=== PATIENT | male | born 1940 | race African-American/Black ===

== ENCOUNTER 2016-09-20 14:24 | Inpatient (IN) ==
[2016-09-20] MEDS ORDERED: 0.9 % Sodium Chloride 1,000 ML IVC ONE (14:37)
[2016-09-20] MEDS ORDERED: Ondansetron 4 MG/2 ML VIAL IVP ONE (14:37)
[2016-09-20 14:55] LABS: Basophils % 0.2 %; Eosinophils # 0.1 K/mcL (0.0-0.6); Eosinophils % 1.1 %; Hematocrit 32.3 % (37.5-50.1); Hemoglobin 10.2 g/dL (12.9-16.9); Immature Granulocytes % 0.4 % (0-4); Lymphocytes # 1.1 K/mcL (0.6-4.6); Lymphocytes % 13.1 %; Mean Corpuscular HGB Conc 31.6 g/dL (31.6-35.5); Mean Corpuscular Hemoglobin 27.8 pg (28.0-33.3); Mean Platelet Volume 10.4 fL (9.4-12.4); Monocytes # 0.5 K/mcL (0.0-1.3); Monocytes % 6.4 %; Neutrophils # 6.7 K/mcL (1.6-8.9); Platelet Count 157 K/mcL (140-400); Red Blood Count 3.67 M/mcL (4.19-5.50); Segmented Neutrophils % 78.8 %
[2016-09-20 15:01] LABS: INR 1.5; Prothrombin Time 15.9 Seconds (9.4-12.1)
[2016-09-20 15:05] LABS: Calcium 8.7 mg/dL (8.6-10.8); Potassium 4.1 mEq/L (3.5-4.5)
--- NOTE | 2016-09-20 15:14 | Emergency Department Note ---
Disposition Clinical Impression: GI bleed Qualifiers: GI bleed type/associated pathology: melena Qualified Code(s): K92.1 - Melena Disposition: Admitted As Inpatient Condition: Critical GI Bleed HPI - General Chief complaint: ED GI Bleed Stated complaint: tarry stool weakness Time Seen by Provider: 09/20/16 14:31 Source: patient Limitations: no limitations Nursing Notes Reviewed: Yes Vital Signs Reviewed: Yes - History of Present Illness HPI Narrative: Mr. Michaels, a 76yo male, presents from home by EMS with chief complaint of generalized weakness, nausea, coal black stools. Generalized weakness onset last night. Nausea with black stools onset this morning. Consistency described as loose or tarry. Patient notes intermittant cramping abdominal pain onset Tuesday, worse with PO intake. He has had reduced PO intake because of this. Patient diagnosed with A. Fib 1.5-2 weeks ago. Anticoagulated on aspirin and xaralto. PMH: Hypertension, CAD, secondary hyperparathyroidism, A. fib. PSH: Guzman aneurysm 2002, gastric aneurysm 2009, aortic aneurysm with dissection 2013. Admits: Generalized weakness now resolved, black tarry stools. Denies: Fever, chills, current weakness, dizziness, lightheadedness, chest pains , palpitations. PCP: Dr. Mayo Stock Chaser: Dr. Medina, [facility] Buyer Assistant: Dr. Otoole - Related Data Home Medications Medication Instructions Recorded Confirmed Aspirin 81 mg PO DAILY 09/20/16 09/20/16 Atorvastatin [Lipitor] 40 mg PO HS 09/20/16 09/20/16 Calcitriol [Calcitriol] 0.25 mcg PO DAILY 09/20/16 09/20/16 Carvedilol [Coreg] 25 mg PO BID 09/20/16 09/20/16 Furosemide [Lasix] 40 mg PO DAILY 09/20/16 09/20/16 Hydralazine HCl 50 mg PO BID 09/20/16 09/20/16 Losartan Potassium [Cozaar] 50 mg PO DAILY 09/20/16 09/20/16 Potassium Chloride [Klor-Con M20] 20 meq PO DAILY 09/20/16 09/20/16 Primidone [Mysoline] 50 mg PO HS 09/20/16 09/20/16 Rivaroxaban [Xarelto] 15 mg PO DAILY 09/20/16 09/20/16 Tamsulosin [Flomax] 0.4 mg PO DAILY 09/20/16 09/20/16 Allergies Allergy/AdvReac Type Severity Reaction Status Date / Time lisinopril AdvReac Swelling Verified 09/20/16 16:14 of Lip/Tongue/Throat Past Medical History - Past Medical History Medical history: Reports: aortic aneurysm, CHF, hypertension, renal disease, thyroid disease Psychiatric history: Reports: no psych history - Social History Smoking Status: Never smoker Smokeless Tobacco Status: No Alcohol use: Reports: none Drug use: Reports: none Physical Exam General: Patient is alert, oriented, and in no acute distress. HEENT: No facial asymmetry. Head is normocephalic and atraumatic. Oral mucosa moist. Trachea midline. Cardiovascular: Heart regular rate and rhythm without clicks, rubs, gallops, or murmurs. No JVD. PMI nondisplaced. Respiratory: Symmetric chest rise with good respiratory effort. Bilateral breath sounds are clear without wheezing, crackles, or rhonchi. Abdomen: Bowel sounds present normoactive x-4 quadrants. Abdomen is soft, nondistended. Nontender. No organomegaly noted. Rectal: Good rectal tone, no lesions or hemorrhoids palpated. Stool tarry and black on the gloved finger. FOBT submitted. Neuro: Cranial nerves II through XII grossly intact. Psych: Patient's affect is appropriate for situation. - General Limitations: no limitations General appearance: alert, in no apparent distress Course Course Narrative: Concerns for upper GI bleed. Also concern for potential aorto enteric fistula given his history of aortic dissection with repair. Given his history of kidney disease, will CT chest, abdomen, pelvis without contrast Disposition pending additional workup. Lab work does show mild anemia with hemoglobin of 10.2 versus previous value above 13. Patient is asymptomatic at this time. Creatinine 1.84. FOBT positive. Spoke with patient and his regarding findings thus far. Patient is agreeable to staying with edema should there be no aortic findings on CTA. If there are he would prefer to be transferred to [facility]. CTA pending. Chest x-ray interpreted as no acute process. CTA chest, abdomen, and pelvis without contrast interpreted as no acute findings. Chest X-Ray 09/20/16 14:37 IMPRESSION: No acute process. D/ / Chong Alicia MD / Chong Alicia MD Interpreting Provider: Chong Alicia MD Abdomen/Pelvis CT 09/20/16 15:12 IMPRESSION: No evidence of dissecting aneurysm of the aorta, similar in caliber to the prior study. This finding is not well evaluated on this noncontrast study. Radiodense material within the duodenum. There is edema within the mesenteric fat of the upper abdomen adjacent to the distal stomach and duodenum. Correlation for inflammation is recommended. Sigmoid colonic diverticulosis without radiographic evidence of active inflammation. D/ / Rach Khan Cha, MD / Rach Khan Cha, MD Interpreting Provider: Rach Khan Cha, MD Chest CT 09/20/16 15:12 IMPRESSION: Stable noncontrast CT findings of the chest. Postsurgical changes of aortic repair. There is evidence of dissection of the descending thoracic aorta, also seen on the prior study. D/ / Rach Khan Cha, MD / Rach Khan Cha, MD Interpreting Provider: Rach Khan Cha, MD 17:[address] Segura. He accepts the patient. No further questions or concerns at this time. Vital Signs Temperature 97.7 F 09/20/16 14:25 Pulse Rate 70 09/20/16 14:25 Respiratory Rate 20 09/20/16 14:25 Blood Pressure 126/63 09/20/16 14:25 O2 Sat by Pulse Oximetry 98 09/20/16 14:25 Temperature 97.7 F 09/20/16 14:25 Pulse Rate 69 09/20/16 17:26 Respiratory Rate 13 09/20/16 18:11 Blood Pressure 138/72 09/20/16 18:11 O2 Sat by Pulse Oximetry 98 09/20/16 17:26 Oxygen Delivery Oxygen Delivery Room Air GI Bleed - Medical Records Medical records reviewed: Yes I reviewed the patient's medical records. - Lab Data Lab results reviewed: Yes I reviewed the patient's lab results. Result diagrams: 09/20/16 18:26 09/20/16 14:41 Lab Results 09/20/16 09/20/16 09/20/16 Range/Units 14:41 14:41 14:41 WBC 8.5 (4.3-11.1) K/mcL RBC 3.67 L (4.19-5.50) M/mcL Hgb 10.2 L (12.9-16.9) g/dL Hct 32.3 L (37.5-50.1) % MCV 88.0 (83.0-100.0) fL MCH 27.8 L (28.0-33.3) pg MCHC 31.6 (31.6-35.5) g/dL RDW 14.0 (11.5-14.5) % Plt Count 157 (140-400) K/mcL MPV 10.4 (9.4-12.4) fL Immature Gran % 0.4 (0-4) % Seg Neutrophils % 78.8 % Lymphocytes % 13.1 % Monocytes % 6.4 % Eosinophils % 1.1 % Basophils % 0.2 % Neutrophils # 6.7 (1.6-8.9) K/mcL Lymphocytes # 1.1 (0.6-4.6) K/mcL Monocytes # 0.5 (0.0-1.3) K/mcL Eosinophils # 0.1 (0.0-0.6) K/mcL Basophils # 0.0 (0.0-0.2) K/mcL PT 15.9 H (9.4-12.1) Seconds INR 1.5 APTT 31.0 (26.0-36.0) Seconds Sodium (136-145) mEq/L Potassium (3.5-4.5) mEq/L Chloride (98-109) mEq/L Carbon Dioxide (19-29) mEq/L BUN (8-26) mg/dL Creatinine (0.72-1.25) mg/dL Est GFR ( Amer) (> 60) Est GFR (Non-Af Amer) (> 60) BUN/Creatinine Ratio (6-26) Glucose (70-99) mg/dL Calculated Osmolality (280-300) Calcium (8.6-10.8) mg/dL Troponin I (0-0.03) ng/mL Lipase 18 (8-78) Units/L Stool Occult Blood (Negative) Blood Type Antibody Screen 09/20/16 09/20/16 09/20/16 Range/Units 14:41 14:41 14:50 WBC (4.3-11.1) K/mcL RBC (4.19-5.50) M/mcL Hgb (12.9-16.9) g/dL Hct (37.5-50.1) % MCV (83.0-100.0) fL MCH (28.0-33.3) pg MCHC (31.6-35.5) g/dL RDW (11.5-14.5) % Plt Count (140-400) K/mcL MPV (9.4-12.4) fL Immature Gran % (0-4) % Seg Neutrophils % % Lymphocytes % % Monocytes % % Eosinophils % % Basophils % % Neutrophils # (1.6-8.9) K/mcL Lymphocytes # (0.6-4.6) K/mcL Monocytes # (0.0-1.3) K/mcL Eosinophils # (0.0-0.6) K/mcL Basophils # (0.0-0.2) K/mcL PT (9.4-12.1) Seconds INR APTT (26.0-36.0) Seconds Sodium 140 (136-145) mEq/L Potassium 4.1 (3.5-4.5) mEq/L Chloride 110 H (98-109) mEq/L Carbon Dioxide 20 (19-29) mEq/L BUN 93 H (8-26) mg/dL Creatinine 1.84 H (0.72-1.25) mg/dL Est GFR ( Amer) 44 L (> 60) Est GFR (Non-Af Amer) 36 L (> 60) BUN/Creatinine Ratio 51 H (6-26) Glucose 114 H (70-99) mg/dL Calculated Osmolality 320 H (280-300) Calcium 8.7 (8.6-10.8) mg/dL Troponin I (0-0.03) ng/mL Lipase (8-78) Units/L Stool Occult Blood Positive A (Negative) Blood Type A POSITIVE Antibody Screen NEGATIVE 09/20/16 09/20/16 Range/Units 18:26 18:26 WBC (4.3-11.1) K/mcL RBC (4.19-5.50) M/mcL Hgb 9.6 L (12.9-16.9) g/dL Hct 30.3 L (37.5-50.1) % MCV (83.0-100.0) fL MCH (28.0-33.3) pg MCHC (31.6-35.5) g/dL RDW (11.5-14.5) % Plt Count (140-400) K/mcL MPV (9.4-12.4) fL Immature Gran % (0-4) % Seg Neutrophils % % Lymphocytes % % Monocytes % % Eosinophils % % Basophils % % Neutrophils # (1.6-8.9) K/mcL Lymphocytes # (0.6-4.6) K/mcL Monocytes # (0.0-1.3) K/mcL Eosinophils # (0.0-0.6) K/mcL Basophils # (0.0-0.2) K/mcL PT (9.4-12.1) Seconds INR APTT (26.0-36.0) Seconds Sodium (136-145) mEq/L Potassium (3.5-4.5) mEq/L Chloride (98-109) mEq/L Carbon Dioxide (19-29) mEq/L BUN (8-26) mg/dL Creatinine (0.72-1.25) mg/dL Est GFR ( Amer) (> 60) Est GFR (Non-Af Amer) (> 60) BUN/Creatinine Ratio (6-26) Glucose (70-99) mg/dL Calculated Osmolality (280-300) Calcium (8.6-10.8) mg/dL Troponin I 0.01 (0-0.03) ng/mL Lipase (8-78) Units/L Stool Occult Blood (Negative) Blood Type Antibody Screen - Radiology Data Radiology results reviewed: Yes I reviewed the patient's radiology results. Chest X-Ray 09/20/16 14:37 IMPRESSION: No acute process. D/ / Chong Alicia MD / Chong Alicia MD Interpreting Provider: Chong Alicia MD Abdomen/Pelvis CT 09/20/16 15:12 IMPRESSION: No evidence of dissecting aneurysm of the aorta, similar in caliber to the prior study. This finding is not well evaluated on this noncontrast study. Radiodense material within the duodenum. There is edema within the mesenteric fat of the upper abdomen adjacent to the distal stomach and duodenum. Correlation for inflammation is recommended. Sigmoid colonic diverticulosis without radiographic evidence of active inflammation. D/ / Rach Khan Cha, MD / Rach Khan Cha, MD Interpreting Provider: Rach Khan Cha, MD Chest CT 09/20/16 15:12 IMPRESSION: Stable noncontrast CT findings of the chest. Postsurgical changes of aortic repair. There is evidence of dissection of the descending thoracic aorta, also seen on the prior study. D/ / Rach Khan Cha, MD / Rach Khan Cha, MD Interpreting Provider: Rach Khan Cha, MD - EKG Data EKG attestation: Yes I reviewed and interpreted this EKG. EKG results narrative: EKG dated September 16 100sinus rhythm with rate of 70. MO prolonged indicating first-degree AV block. Intervals otherwise normal. Left axis. LVH criteria met. Nonspecific ST-T changes. Compared to previous dated 04/20 2012 show no acute ischemic changes in comparison; first-degree AV block present on comparison EKG. Critical Care Time Critical Care Time: Yes Total Critical Care Time: 30 Attestation: Critical care performed: Time is exclusive of separately billable procedures. Time includes: direct patient care, patient reassessment, coordination of patient care, interpretation of data (laboratory data, radiology data, and respiratory data), review of patient's medical records, medical consultation and documentation of patient care. Procedures included in critical care time: Procedures excluded from critical care time:
[2016-09-20] MEDS ORDERED: Pantoprazole 40 MG VIAL IVP ONE (15:19)
--- NOTE | 2016-09-20 15:21 | Emergency Department Note ---
START Narrative - START START: I examined this patient and my medical decision-making was reviewed with the CERTIFIED [employer] OPERATOR/PA/Advanced Practice Nurse/Resident Physician. I agree with the documented findings, disposition and treatment plan as described except to the extent set forth below. Patient presents to the emergency department with a chief complaint of weakness. Patient states he has not felt well since Tuesday. Today he started passing dark black stools. Concern that he is bleeding internally. Patient resides started on Xarelto for new onset A. fib. On exam is awake and alert in no distress. Abdomen soft with some mild epigastric tenderness. Lungs clear. Rectal exam showed black stool per Dr. Stern. In. A call blood sent. GI bleed workup. Likely admission. Patient's hemoglobin is dropped from 13 to 10 in a week.
[2016-09-20] MEDS: Pantoprazole 40 MG in 0.9 % Sodium Chloride Mini Bag 100 ML IVC SCH ×2 (15:29→20:19)
--- NOTE | 2016-09-20 17:54 | Internal Med History&Physical ---
Date of Encounter: 09/20/16 Time of Encounter: 17:50 Assessment and Plan (1) GI bleeding Current visit: Yes Status: Acute Patient with GI bleeding likely secondary to the use of anticoagulation. Decreased hemoglobin compared to baseline noted. Today hemoglobin 10.2, baseline 13.7. Stool tested positive for blood. We will keep the patient nothing by mouth for now. Monitor hemoglobin every 6 hours. Platelet count within normal limits. Kidney function test consistent with his baseline. We will continue with IV Protonix. There is no history of liver cirrhosis. DVT prophylaxis will be provided with EPCDs, we will avoid the use of heparin. Stop anticoagulation. Avoid aspirin. Avoid nephrotoxic agents in light of history of chronic kidney disease. Telemetry monitoring. Will obtain cardiac biomarkers. A consultation with supervisor lime will be requested. The plan of care was discussed in detail with the patient and his , they both expressed understanding. Qualifiers: GI bleed type/associated pathology: unspecified gastrointestinal hemorrhage type Qualified Code(s): K92.2 - Gastrointestinal hemorrhage, unspecified (2) DVT prophylaxis Current visit: Yes Status: Acute (3) Aneurysm Current visit: Yes Status: Acute Internal Medicine - H&P: HPI Chief complaint: Dark Stools, weakness Admitted From: Emergency Dept Plans for Post Hospital Care: Home History of present illness: Mr. Michaels is a 76 year old male with medical history of hypertension, atrial fibrillation diagnosed 10 days ago, he was started 10 days ago on Xarelto, multiple aneurysms, chronic kidney disease (follows up with Dr. Otoole). He presented to our emergency department complaining of progressive weakness which started 3 days ago. Initially, the patient thought that he had some viral infection. Additionally, the patient noticed some dark colored stool. As stated above, the patient was started recently on anticoagulation with Xarelto in light of a recent diagnosis of atrial fibrillation. He presented to the emergency department and initial workup revealed a hemoglobin of 10.2, stool tested positive for blood. His hemoglobin a few days ago was 13. The patient was admitted for further management and workup. In light of history of multiple aneurysms he underwent CT of the chest and abdomen which did not reveal any changes in his prior aneurysms. Due to history of CKD, the chest and abdomen CT was obtained without IV contrast. During my encounter with the patient was alert, awake, oriented, not in distress, his was present during my encounter with him. Past Med Surg Social Fam HX - Past Medical History Medical history: aortic aneurysm, CHF, hypertension, renal disease, thyroid disease Psychiatric history: no psych history - Social History Smoking Status: Never smoker Smokeless Tobacco Status: No Alcohol use: none Drug use: none Internal Medicine - H&P: Meds Aspirin 81 mg PO DAILY 09/20/16 [History] Atorvastatin [Lipitor] 40 mg PO HS 09/20/16 [History] Calcitriol [Calcitriol] 0.25 mcg PO DAILY 09/20/16 [History] Carvedilol [Coreg] 25 mg PO BID 09/20/16 [History] Furosemide [Lasix] 40 mg PO DAILY 09/20/16 [History] Hydralazine HCl 50 mg PO BID 09/20/16 [History] Losartan Potassium [Cozaar] 50 mg PO DAILY 09/20/16 [History] Potassium Chloride [Klor-Con M20] 20 meq PO DAILY 09/20/16 [History] Primidone [Mysoline] 50 mg PO HS 09/20/16 [History] Rivaroxaban [Xarelto] 15 mg PO DAILY 09/20/16 [History] Tamsulosin [Flomax] 0.4 mg PO DAILY 09/20/16 [History] Allergies lisinopril Adverse Reaction (Verified 09/20/16 16:14) Swelling of Lip/Tongue/Throat All Systems PM: A 10-system review of systems was performed and is negative for pertinent findings except as documented above in the HPI. - Constitutional Constitutional: as per HPI, no chills, no fever(s), no night sweats - EENT Eyes: as per HPI, no change in vision, no discharge, no pain, no photophobia Ears: as per HPI, no ear discharge, no ear pain, no tinnitus Nose, mouth and throat: as per HPI, no dysphagia, no nasal discharge, no neck pain, no sore throat - Breasts Breasts: as per HPI - Cardiovascular Cardiovascular ROS IM: as per HPI, no chest pain, no diaphoresis, no dyspnea, no lightheadedness, no palpitations, no syncope - Respiratory Respiratory: as per HPI, no cough, no dyspnea, no wheezing, no excessive phlegm production - Gastrointestinal Gastrointestinal: as per HPI, no abdominal pain, no diarrhea, no hematemesis, no hematochezia, no melena, no nausea, no vomiting - Genitourinary Genitourinary ROS male: as per HPI - Musculoskeletal Musculoskeletal ROS IM: as per HPI, no numbness, no tingling - Integumentary Integumentary IM: as per HPI, no rash, no unusual bruising - Neurological Neurological ROS: as per HPI, no confusion, no convulsions, no focal weakness, no numbness, no tingling, no tremor(s) - Psychiatric Psychiatric: as per HPI - Endocrine Endocrine IM: as per HPI - Hematologic/Lymphatic Hematologic/Lymphatic: as per HPI, no easy bruising - Allergic/Immunologic Allergic/Immunologic: as per HPI - Constitutional Vitals: Temp Pulse Resp BP Pulse Ox 97.7 F 69 19 145/76 98 09/20/16 14:25 09/20/16 17:26 09/20/16 17:26 09/20/16 17:26 09/20/16 17:26 General appearance: Present: cooperative, A&O X 3, pleasant, no acute distress - Head Head exam: Present: atraumatic, normocephalic - Eye Eye exam: Present: PERRL, conjuntiva pink, sclera anicteric Pupils: Present: PERRL - Neck Neck exam general surgery: Present: supple, trachea midline. Absent: lymphadenopathy - Respiratory Respiratory exam: Present: CTAB. Absent: accessory muscle use, rales, rhonchi, wheezes - Cardiovascular Cardiovascular exam: Present: RRR, +S1, +S2. Absent: diastolic murmur, gallop, rubs, systolic murmur - GI/Abdominal GI/Abdominal exam: Present: normal bowel sounds, soft, no peritoneal signs. Absent: distended, tenderness - Extremities Exam Extremities exam: Present: warm, radial pulses palpable and symetrical. Absent : calf tenderness, cyanotic, pedal edema - Neurological Exam Neurological exam: Present: CN II-XII intact, oriented X3, no focal deficits. Absent: pronater drift, facial droop, speech deficit - Skin Skin exam: Present: dry, intact Internal Med - H&P Results - Labs CBC & Chem 7: 09/20/16 14:41 09/20/16 14:41 Labs: Short CBC 09/20/16 Range/Units 14:41 WBC 8.5 (4.3-11.1) K/mcL Hgb 10.2 L (12.9-16.9) g/dL Hct 32.3 L (37.5-50.1) % Plt Count 157 (140-400) K/mcL Neutrophils # 6.7 (1.6-8.9) K/mcL BMP 09/20/16 14:41 Sodium 140 Potassium 4.1 Chloride 110 H Carbon Dioxide 20 BUN 93 H Creatinine 1.84 H Glucose 114 H Calcium 8.7 - Impressions ITS Impressions Chest X-Ray 09/20/16 14:37 IMPRESSION: No acute process. D/ / Chong Alicia MD / Chong Alciia MD Interpreting Provider: Chong Alicia MD Abdomen/Pelvis CT 09/20/16 15:12 IMPRESSION: No evidence of dissecting aneurysm of the aorta, similar in caliber to the prior study. This finding is not well evaluated on this noncontrast study. Radiodense material within the duodenum. There is edema within the mesenteric fat of the upper abdomen adjacent to the distal stomach and duodenum. Correlation for inflammation is recommended. Sigmoid colonic diverticulosis without radiographic evidence of active inflammation. D/ / Rach Khan Cha, MD / Rach Khan Cha, MD Interpreting Provider: Rach Khan Cha, MD Chest CT 09/20/16 15:12 IMPRESSION: Stable noncontrast CT findings of the chest. Postsurgical changes of aortic repair. There is evidence of dissection of the descending thoracic aorta, also seen on the prior study. D/ / Rach Khan Cha, MD / Rach Khan Cha, MD Interpreting Provider: Rach Khan Cha, MD
[2016-09-20] MEDS ORDERED: D5% in 0.45% NACL 1,000 ML IVC SCH (18:00)
[2016-09-20] MEDS ORDERED: Naloxone 0.4 MG/ML INJ IVP PRN (18:00)
[2016-09-20] MEDS ORDERED: Ondansetron 4 MG/2 ML VIAL IVP PRN (18:00)
[2016-09-20] MEDS ORDERED: *HR* Morphine 2 MG/ML SYRINGE IVP PRN (18:00)
[2016-09-20 18:41] LABS: Hematocrit 30.3 % (37.5-50.1); Hemoglobin 9.6 g/dL (12.9-16.9)
[2016-09-21 00:54] LABS: Basophils % 0.4 %; Eosinophils # 0.2 K/mcL (0.0-0.6); Eosinophils % 2.1 %; Hematocrit 25.7 % (37.5-50.1); Hematocrit 26.5 % (37.5-50.1); Hemoglobin 8.1 g/dL (12.9-16.9); Hemoglobin 8.3 g/dL (12.9-16.9); Immature Granulocytes % 0.4 % (0-4); Lymphocytes # 1.3 K/mcL (0.6-4.6); Lymphocytes % 16.3 %; Mean Corpuscular HGB Conc 31.5 g/dL (31.6-35.5); Mean Corpuscular Hemoglobin 27.6 pg (28.0-33.3); Mean Corpuscular Volume 87.4 fL (83.0-100.0); Monocytes # 0.7 K/mcL (0.0-1.3); Monocytes % 9.3 %; Neutrophils # 5.6 K/mcL (1.6-8.9); Platelet Count 125 K/mcL (140-400); Red Blood Count 2.94 M/mcL (4.19-5.50); Red Cell Distribution Width 14.1 % (11.5-14.5); Segmented Neutrophils % 71.5 %
[2016-09-21 01:00] LABS: INR 1.4; Prothrombin Time 15.5 Seconds (9.4-12.1)
[2016-09-21 01:13] LABS: Albumin 2.9 g/dL (3.5-5.0); Albumin/Globulin Ratio 1.3 (1.1-2.2); Bilirubin,Direct 0.3 mg/dL (0.0-0.5); Bilirubin,Indirect 0.4 mg/dL (0.0-1.2); Bilirubin,Total 0.7 mg/dL (0.2-1.2); Calcium 8.4 mg/dL (8.6-10.8); Globulin 2.2 g/dL (2.4-3.5); Potassium 3.7 mEq/L (3.5-4.5); Total Protein 5.1 g/dL (6.0-8.3)
[2016-09-21] MEDS ORDERED: 0.9 % Sodium Chloride 1,000 ML ONE (01:47)
[2016-09-21] MEDS: Pantoprazole 40 MG in 0.9 % Sodium Chloride Mini Bag 100 ML IVC SCH ×4 (01:48→20:34)
[2016-09-21] MEDS: 0.9 % Sodium Chloride 1,000 ML IVC SCH (01:53)
[2016-09-21 06:48] LABS: Hematocrit 23.8 % (37.5-50.1); Hemoglobin 7.7 g/dL (12.9-16.9)
--- NOTE | 2016-09-21 10:26 | Gastroenterology Consult Note ---
<Danish Rosario - Last Filed: 09/21/16 11:07> Date of Encounter: 09/21/16 Time of Encounter: 09:55 - Assessment and plan (1) Melena Current Visit: Yes Status: Acute Assessment and plan: Complete EGD today to r/o esophagitis, gastritis, duodenitis, PUD, MW tear, or AVM. Keep NPO. (2) Anemia Current Visit: Yes Status: Acute Assessment and plan: Secondary to melena. Continue to monitor CBC and transfuse PRBC as needed. Hgb 7.7 this AM, 2 units PRBC ordered by primary team. Qualifiers: Anemia type: unspecified type Qualified Code(s): D64.9 - Anemia, unspecified (3) History of aortic aneurysm Current Visit: Yes Status: Acute - Time Spent With Patient Total time spent is greater than 50% in coordination of care (as documented) at patient's floor/unit and/or counseling patient: GI History of Present Illness - Data of Consult Patient: new to practice Consult date: 09/21/16 Requesting Physician: Mingo Forbes MD - Consult Narrative Reason for consult: GI bleed on Xarelto History of present illness: Mr. Michaels is a 76 year old male with PMHx of aortic aneurysm, CHF, HTN CKD, Afib (started on Xarelto 10 days ago). He presented to the ED with progressive weakness, which started 3 days prior to admission. He reported dark colored stool. Hgb on admission was 10.2 and Hgb this AM 7.7. his baseline Hgb 13. FOBT was positive. CT A/P showed no change his aortic aneurysm but did reveal radiodense material in the distal duodenum, very large duodenal diverticula noted, stranding within mesenteric fat adjacent to distal stomach and duodenum. He denies fever, chest pain, dyspnea, abdominal pain, nausea, vomiting, diarrhea , hematemesis, or hematochezia. Procedures: Colonoscopy 12/07/2012 Dr. Raphael: Diverticulosis sigmoid colon. EGD 06/30/2006 Dr. Raphael: Reflux esophagitis NSAIDs: None Anticoagulation: Xarelto Past Med Surg Social Fam HX - Past Medical History Medical history: aortic aneurysm, CHF, hypertension, renal disease, thyroid disease Psychiatric history: no psych history - Past Surgical History Surgical History: orthopedic, other - Social History Smoking Status: Never smoker Smokeless Tobacco Status: No Alcohol use: none Drug use: none - Family History Father Living Status: Hx Family Endocrine Disorder: Yes (kidney disease) Mother Living Status: Cause of : anyeurism Hx Family Cardiac Disorders: Yes - Gastrointestinal Gastrointestinal: Present: as per HPI - Constitutional Constitutional: as per HPI - EENT Eyes: as per HPI Ears: Present: as per HPI Nose, mouth and throat: Present: as per HPI - Cardiovascular Cardiovascular ROS: Present: as per HPI - Respiratory Respiratory IM: Present: as per HPI - Genitourinary Genitourinary: Absent: change in color, Urinary frequency - Neurological ROS Neurological GI: Present: as per HPI - Hematologic/Lymphatic Hematologic/Lymphatic pediatric: Present: as per HPI - Musculoskeletal Musculoskeletal ROS GI: Present: as per HPI - Integumentary Integumentary GI: Present: as per HPI - Psychiatric ROS Psychiatric GI: Present: as per HPI - Endocrine Endocrine IM: Present: as per HPI - Constitutional Vitals: Temp Pulse Resp BP Pulse Ox 98.4 F 75 16 145/81 94 L 09/21/16 08:23 09/21/16 08:23 09/21/16 08:23 09/21/16 08:23 09/21/16 08:23 General appearance: Present: cooperative, A&O X 3, no acute distress, answers questions appropriately - Head Head exam: Present: atraumatic, normocephalic - Eye Eye exam: Present: normal appearance, sclera anicteric - ENT ENT exam: Present: mucous membranes dry - Neck Neck exam general surgery: Present: normal inspection, trachea midline - Respiratory Respiratory exam: Present: CTAB. Absent: rales, rhonchi, wheezes - Cardiovascular Cardiovascular exam: Present: RRR, +S1, +S2 - GI/Abdominal GI/Abdominal exam: Present: soft, no peritoneal signs. Absent: distended, firm , guarding, tenderness - Rectal Rectal exam: Present: deferred - Extremities Exam Extremities exam: Present: warm - Neurological Exam Neurological exam: Present: no focal deficits - Psychiatric Psychiatric exam: Present: normal affect, normal mood - Skin Skin exam: Present: dry, intact, normal color, warm Results - Labs CBC & Chem 7: 09/21/16 06:26 09/21/16 00:32 Labs: Last Result Calcium 8.4 mg/dL (8.6-10.8) L 09/21/16 00:32 Troponin I 0.03 ng/mL (0-0.03) 09/21/16 06:26 Stool Occult Blood Positive (Negative) A 09/20/16 14:50 Entire Visit Hgb 7.7 g/dL (12.9-16.9) L 09/21/16 06:26 Hct 23.8 % (37.5-50.1) L 09/21/16 06:26 PT 15.5 Seconds (9.4-12.1) H 09/21/16 00:32 Total Bilirubin 0.7 mg/dL (0.2-1.2) 09/21/16 00:32 AST 14 Units/L (5-34) 09/21/16 00:32 ALT 17 Units/L (0-55) 09/21/16 00:32 Lipase 18 Units/L (8-78) 09/20/16 14:41 - ABG ABG results: PT/INR, D-dimer PT 15.5 Seconds (9.4-12.1) H 09/21/16 00:32 Consult Discharge Plan - Plan Referrals: Leah French CNP [Partnered Physician] - 09/29/16 10:40 am <Diane Hutchinson - Last Filed: 09/21/16 17:53> Date of Encounter: 09/21/16 Time of Encounter: 12:40 - Time Spent With Patient Total time spent is greater than 50% in coordination of care (as documented) at patient's floor/unit and/or counseling patient: GI History of Present Illness - Data of Consult Requesting Physician: Mingo Forbes MD - Consult Narrative History of present illness: Mr. Michaels is a 76 year old male - Constitutional Vitals: Temp Pulse Resp BP Pulse Ox 99.1 F 69 16 175/77 96 09/21/16 16:54 09/21/16 16:54 09/21/16 16:54 09/21/16 16:54 09/21/16 16:54 Results - Labs CBC & Chem 7: 09/21/16 06:26 09/21/16 00:32 Labs: Last Result Calcium 8.4 mg/dL (8.6-10.8) L 09/21/16 00:32 Troponin I 0.03 ng/mL (0-0.03) 09/21/16 06:26 Stool Occult Blood Positive (Negative) A 09/20/16 14:50 Entire Visit Hgb 7.7 g/dL (12.9-16.9) L 09/21/16 06:26 Hct 23.8 % (37.5-50.1) L 09/21/16 06:26 PT 15.5 Seconds (9.4-12.1) H 09/21/16 00:32 Total Bilirubin 0.7 mg/dL (0.2-1.2) 09/21/16 00:32 AST 14 Units/L (5-34) 09/21/16 00:32 ALT 17 Units/L (0-55) 09/21/16 00:32 Lipase 18 Units/L (8-78) 09/20/16 14:41 - ABG ABG results: PT/INR, D-dimer PT 15.5 Seconds (9.4-12.1) H 09/21/16 00:32
[2016-09-21] MEDS ORDERED: 0.9 % Sodium Chloride 250 ML ONE ×2 (11:07→15:33)
[2016-09-21] MEDS ORDERED: *HR* Midazolam HCl 5 MG/5 ML VIAL IVP ONE (12:19)
[2016-09-21] MEDS ORDERED: *HR* FentaNYL (PF) 100 MCG/2 ML VIAL ONE (12:19)
--- NOTE | 2016-09-21 12:20 | Internal Med Progress Note ---
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 Patient has no chest pain and is hemodynamically stable GI is on board for EGD this a.m Patient is high risk for hemodynamic instability from acute blood loss He is full code Monitor closely (2) GI bleed Current Visit: Yes Status: Acute Assessment and plan: As above Qualifiers: GI bleed type/associated pathology: melena Qualified Code(s): K92.1 - Melena (3) Atrial fibrillation Current Visit: Yes Status: Chronic Assessment and plan: Continue Coreg , hold ASA and Xarelto Monitor closely Qualifiers: Atrial fibrillation type: chronic Qualified Code(s): I48.2 - Chronic atrial fibrillation (4) CKD (chronic kidney disease) stage 3, GFR 30-59 ml/min Current Visit: Yes Status: Chronic Assessment and plan: Elevated BUN possibly due to bleed but Cr and GFR is stable at baseline (5) History of aortic aneurysm Current Visit: Yes Status: Chronic (6) Hypertension Current Visit: Yes Status: Chronic Assessment and plan: Hold losartan and hydralazine for now Start home dose of coreg and lasix Will restart these medications prn Qualifiers: Hypertension type: essential hypertension Qualified Code(s): I10 - Essential (primary) hypertension (7) Hyperlipidemia Current Visit: Yes Status: Chronic Assessment and plan: Resume lipitor Qualifiers: Hyperlipidemia type: unspecified Qualified Code(s): E78.5 - Hyperlipidemia , unspecified (8) BPH (benign prostatic hyperplasia) Current Visit: Yes Status: Chronic Assessment and plan: On Tamsulosin at home Resume same Qualifiers: Prostatic enlargement morphology: unspecified morphology Lower urinary tract symptom presence: presence of symptoms unspecified Qualified Code(s): N40.0 - Benign prostatic hyperplasia without lower urinary tract symptoms - Subjective Interval history: 76 Y/O M with recent diagnosis of Afib on Xarelto, CKD 3, Multiple aortic aneurysms Patient is admitted for management of Acute blood loss anemia, possibly a GI source He is seen at bedside this morning He has not had a BM since admission He denies dizziness, chest pain, still has fatigue Vitals are stable with no tachycardia or hypotension at this time HB has dropped to 7.7 with increasing BUN . Hb was 10.6 on admission. Will order 2 units RBCs stat He is awaiting EGD by GI Colonoscopy in 2012 was unremarkable Due to multiple aneurysms, he had a Ches/Abdomen/Pelvis CT on admission which revealed post-thoracic aortic dissection stable graft, descending aorta dissection, not changed from prior per CT. - Constitutional Vitals: Temp Pulse Resp BP Pulse Ox 98.8 F 75 16 160/75 97 09/21/16 11:30 09/21/16 11:30 09/21/16 11:30 09/21/16 11:30 09/21/16 11:16 General appearance: Present: cooperative, A&O X 3, pleasant, no acute distress - Head Head exam: Present: atraumatic, normocephalic - Eye Eye exam: Present: PERRL, conjuntiva pink, sclera anicteric Pupils: Present: PERRL - ENT ENT exam: Present: mucous membranes moist - Neck Neck exam general surgery: Present: normal inspection - Respiratory Respiratory exam: Present: CTAB - Cardiovascular Cardiovascular exam: Present: irregular rhythm, +S1, +S2. Absent: systolic murmur, tachycardia - GI/Abdominal GI/Abdominal exam: Present: normal bowel sounds, soft, no peritoneal signs. Absent: guarding, mass, tenderness - Extremities Exam Extremities exam: Absent: pedal edema - Neurological Exam Neurological exam: Present: CN II-XII intact, oriented X3, no focal deficits. Absent: pronater drift, facial droop, speech deficit - Skin Skin exam: Present: dry, intact Internal Medicine: Result - Labs CBC & Chem 7: 09/21/16 06:26 09/21/16 00:32 Labs: Short CBC 09/21/16 09/21/16 09/21/16 Range/Units 00:32 00:32 06:26 WBC 7.8 (4.3-11.1) K/mcL Hgb 8.3 L 8.1 L 7.7 L (12.9-16.9) g/dL Hct 26.5 L 25.7 L 23.8 L (37.5-50.1) % Plt Count 125 L (140-400) K/mcL Neutrophils # 5.6 (1.6-8.9) K/mcL BMP 09/21/16 00:32 Sodium 143 Potassium 3.7 Chloride 114 H Carbon Dioxide 18 L BUN 94 H Creatinine 1.90 H Glucose 119 H Calcium 8.4 L Cardiac Enzymes 09/21/16 09/21/16 Range/Units 00:32 06:26 Troponin I 0.03 0.03 (0-0.03) ng/mL Liver Function 09/21/16 Range/Units 00:32 Total Bilirubin 0.7 (0.2-1.2) mg/dL Direct Bilirubin 0.3 (0.0-0.5) mg/dL AST 14 (5-34) Units/L ALT 17 (0-55) Units/L Alkaline Phosphatase 59 (38-126) Units/L Albumin 2.9 L (3.5-5.0) g/dL - ABG Interpretation ABG results: PT/INR, D-dimer PT 15.5 Seconds (9.4-12.1) H 09/21/16 00:32 Consult Discharge Plan - Plan Referrals: Leah French CNP [Partnered Physician] - 09/29/16 10:40 am
[2016-09-21] MEDS ORDERED: *HR* FentaNYL (PF) 100 MCG/2 ML VIAL IVP PRN (12:21)
[2016-09-21] MEDS ORDERED: Tetracaine/Benzocaine/Butamben 200MG/SPRAY (100SPY/BOT) MM ONE (12:21)
[2016-09-21] MEDS ORDERED: *HR* Midazolam HCl 5 MG/5 ML VIAL IVP PRN (12:21)
--- NOTE | 2016-09-21 12:22 | Pre-Sedation Evaluation ---
Pre-sedation evaluation - Pre-sedation checklist Recent Vitals: Last Vital Signs Temp 98.8 F 09/21/16 11:30 Pulse 75 09/21/16 11:30 Resp 16 09/21/16 11:30 BP 160/75 09/21/16 11:30 Pulse Ox 97 09/21/16 11:16 ASA Classification *see protocol: CLASS III-Severe systemic disease Plan of Care: Pt appropriate candidate for procedure/moderate/conscious sedation , Risks/benefits of procedure/sedation discussed w/ patient/family
[2016-09-21] MEDS ORDERED: *HR* EPINEPHrine 1 MG/10 ML SYRINGE ONE (14:06)
[2016-09-21 22:25] LABS: Basophils % 0.1 %; Eosinophils % 0.2 %; Hematocrit 26.9 % (37.5-50.1); Hemoglobin 8.8 g/dL (12.9-16.9); Immature Granulocytes % 0.4 % (0-4); Lymphocytes # 0.7 K/mcL (0.6-4.6); Lymphocytes % 5.9 %; Mean Corpuscular HGB Conc 32.7 g/dL (31.6-35.5); Mean Corpuscular Hemoglobin 28.6 pg (28.0-33.3); Mean Corpuscular Volume 87.3 fL (83.0-100.0); Mean Platelet Volume 9.9 fL (9.4-12.4); Monocytes % 7.7 %; Neutrophils # 10.6 K/mcL (1.6-8.9); Platelet Count 101 K/mcL (140-400); Red Blood Count 3.08 M/mcL (4.19-5.50); Red Cell Distribution Width 14.4 % (11.5-14.5); Segmented Neutrophils % 85.7 %
[2016-09-21 22:39] LABS: BUN/Creatinine Ratio 46 (6-26); Carbon Dioxide 15 mEq/L (19-29); Chloride 123 mEq/L (98-109); Glucose 98 mg/dL (70-99); Osmolality,Calculated 319 (280-300); Sodium 146 mEq/L (136-145); eGFR For African Americans > 60 (> 60); eGFR For Non-African Americans 54 (> 60)
[2016-09-21 22:41] LABS: Blood Urea Nitrogen 60 mg/dL (8-26); Calcium 6.6 mg/dL (8.6-10.8)
[2016-09-22] MEDS: Pantoprazole 40 MG in 0.9 % Sodium Chloride Mini Bag 100 ML IVC SCH ×5 (00:47→21:25)
[2016-09-22] MEDS: 0.9 % Sodium Chloride 1,000 ML IVC SCH ×2 (01:44→13:00)
[2016-09-22] MEDS: Furosemide 40 MG TABLET PO SCH (08:55)
--- NOTE | 2016-09-22 14:56 | Internal Med Progress Note ---
Date of Encounter: 09/22/16 Time of Encounter: 09:15 - Assessment and plan (1) Acute blood loss anemia Current Visit: Yes Status: Acute Assessment and plan: Baseline Hb of 13 Hb of 10 on admission, 7.7 09/21/16, s/p 2 units 8.6 this a.m with leukocytosis Will transfuse 2 more units EGD with bleeding ~8mm duodenal ulcer and non-bleeding gastric ulcer D/C IVF and advance diet Obtain ECHO Patient is high risk for rebleed, continue close monitoring Patient is high risk for hemodynamic instability from acute blood loss He is full code Monitor closely (2) GI bleed Current Visit: Yes Status: Acute Assessment and plan: As above Qualifiers: GI bleed type/associated pathology: melena Qualified Code(s): K92.1 - Melena (3) Atrial fibrillation Current Visit: Yes Status: Chronic Assessment and plan: Continue Coreg , hold ASA and Xarelto Monitor closely Qualifiers: Atrial fibrillation type: chronic Qualified Code(s): I48.2 - Chronic atrial fibrillation (4) CKD (chronic kidney disease) stage 3, GFR 30-59 ml/min Current Visit: Yes Status: Chronic Assessment and plan: Elevated BUN possibly due to bleed but Cr and GFR is stable at baseline (5) History of aortic aneurysm Current Visit: Yes Status: Chronic Assessment and plan: Chest/Abdomen/Pelvis CT noted (6) Hypertension Current Visit: Yes Status: Chronic Assessment and plan: Resumed all home meds Qualifiers: Hypertension type: essential hypertension Qualified Code(s): I10 - Essential (primary) hypertension (7) Hyperlipidemia Current Visit: Yes Status: Chronic Assessment and plan: Resume lipitor Qualifiers: Hyperlipidemia type: unspecified Qualified Code(s): E78.5 - Hyperlipidemia , unspecified (8) BPH (benign prostatic hyperplasia) Current Visit: Yes Status: Chronic Assessment and plan: On Tamsulosin at home Resume same Qualifiers: Prostatic enlargement morphology: unspecified morphology Lower urinary tract symptom presence: presence of symptoms unspecified Qualified Code(s): N40.0 - Benign prostatic hyperplasia without lower urinary tract symptoms - Subjective Interval history: 76 Y/O M with recent diagnosis of Afib on Xarelto, CKD 3, Multiple aortic aneurysms Patient is admitted for management of Acute blood loss anemia from bleeding duodenal ulcer He is s/p 2 units RBCs He is seen at bedside this morning He has not had a BM since admission He denies dizziness, chest pain, still has fatigue Vitals are stable with no tachycardia or hypotension at this time he will be transfused with 2 more units of blood today Will also advance diet - Constitutional Vitals: Temp Pulse Resp BP Pulse Ox 97.7 F 56 14 110/62 97 09/22/16 13:56 09/22/16 13:56 09/22/16 13:56 09/22/16 13:56 09/22/16 13:56 General appearance: Present: cooperative, A&O X 3, pleasant, no acute distress - Head Head exam: Present: atraumatic, normocephalic - Eye Eye exam: Present: PERRL, conjuntiva pink, sclera anicteric Pupils: Present: PERRL - Neck Neck exam general surgery: Present: supple, trachea midline. Absent: lymphadenopathy - Respiratory Respiratory exam: Present: CTAB. Absent: accessory muscle use, rales, rhonchi, wheezes - Cardiovascular Cardiovascular exam: Present: RRR, +S1, +S2. Absent: diastolic murmur, gallop, rubs, systolic murmur - GI/Abdominal GI/Abdominal exam: Present: normal bowel sounds, soft, no peritoneal signs. Absent: distended, tenderness - Extremities Exam Extremities exam: Present: warm, radial pulses palpable and symetrical. Absent : calf tenderness, cyanotic, pedal edema - Neurological Exam Neurological exam: Present: CN II-XII intact, oriented X3, no focal deficits. Absent: pronater drift, facial droop, speech deficit - Skin Skin exam: Present: dry Internal Medicine: Result - Labs CBC & Chem 7: 09/21/16 22:14 09/21/16 22:14 Labs: Short CBC 09/21/16 Range/Units 22:14 WBC 12.4 H D (4.3-11.1) K/mcL Hgb 8.8 L (12.9-16.9) g/dL Hct 26.9 L (37.5-50.1) % Plt Count 101 L (140-400) K/mcL Neutrophils # 10.6 H (1.6-8.9) K/mcL BMP 09/21/16 22:14 Sodium 146 H Potassium 3.0 L Chloride 123 H Carbon Dioxide 15 L BUN 60 H D Creatinine 1.30 H Glucose 98 Calcium 6.6 L D - ABG Interpretation ABG results: PT/INR, D-dimer PT 15.5 Seconds (9.4-12.1) H 09/21/16 00:32 Consult Discharge Plan - Plan Referrals: Leah French CNP [Partnered Physician] - 09/29/16 10:40 am
--- NOTE | 2016-09-22 16:47 | Electrocardiograph Report ---
[place] [address] Test Date: 2016-09-20 Pat Name: Elliot Michaels Department: 105 Room: 2N10 Gender: M Rehabilitation Technician: : 1940 Requested By: Claus Stern Order Number: [id number] Reading MD: Ronald Storey Measurements Intervals [place] Rate: 70 P: PA: 0 QRS: -31 QRSD: 102 T: 119 QT: 400 QTc: 421 Interpretive Statements SINUS RHYTHM WITH FIRST DEGREE AV BLOCK MARKED LEFT AXIS DEVIATION [QRS AXIS < -30] LEFT VENTRICULAR HYPERTROPHY AND ST-T CHANGE Electronically Signed On 09-22-2016 16:45:36 EST by Ronald Storey
[2016-09-23] MEDS: Pantoprazole 40 MG in 0.9 % Sodium Chloride Mini Bag 100 ML IVC SCH ×2 (02:43→08:29)
[2016-09-23 06:56] LABS: Basophils % 0.1 %; Eosinophils # 0.2 K/mcL (0.0-0.6); Eosinophils % 2.9 %; Hematocrit 29.2 % (37.5-50.1); Hemoglobin 9.5 g/dL (12.9-16.9); Immature Granulocytes % 0.3 % (0-4); Immature Platelets 3.7 % (1.1-6.1); Lymphocytes # 0.9 K/mcL (0.6-4.6); Lymphocytes % 11.6 %; Mean Corpuscular HGB Conc 32.5 g/dL (31.6-35.5); Mean Corpuscular Hemoglobin 28.9 pg (28.0-33.3); Mean Corpuscular Volume 88.8 fL (83.0-100.0); Mean Platelet Volume 10.4 fL (9.4-12.4); Monocytes # 0.5 K/mcL (0.0-1.3); Monocytes % 6.8 %; Red Blood Count 3.29 M/mcL (4.19-5.50); Red Cell Distribution Width 14.6 % (11.5-14.5); Segmented Neutrophils % 78.3 %
[2016-09-23 07:06] LABS: Potassium 3.4 mEq/L (3.5-4.5)
[2016-09-23 07:08] LABS: Calcium 8.6 mg/dL (8.6-10.8)
--- NOTE | 2016-09-23 07:38 | ECHO - Doppler Report ---
Echocardiogram Name: Elliot Michaels Date of Study: 09/22/2016 Date: 1940 Ht: 74.0 in Medical Record#: [id number] Age: 76 Wt: 215.0 lb Gender: Male BSA: 2.24 Order #: [id number] Location: [facility] Room #: 2N10 Reading Physician: Danish Antonio MD, [facility] Lining Folder: Brenna Soto RDCS Ordering Physician: Mingo Forbes MD Primary Physician: Adam Mayo MD Indications: Assess Function, Hx AFIB, GI Bleed Impressions: Technically sub-optimal due to poor echocardiographic windows and clinical status (patient reportedly unable to cooperate with the exam). LV systolic function appears mildly decreased, estimated LVEF 45-50%. The inferior wall appears hypokinetic, although it is not well evaluated on this study. Mild concentric left ventricular hypertrophy. Indeterminate diastolic function due to atrial fibrillation. Normal right ventricular size and function. Mildly dilated right atrium. The aortic root is borderline dilated, measuring 4.0 cm at the sinuses of Valsalva. Mild aortic regurgitation. No evidence of pulmonary hypertension. Consider repeating a limited study with echo contrast to more accurately evaluate LV function when the patient can better tolerate the exam. Findings: Study Quality * Technically sub-optimal due to poor echocardiographic windows and clinical status (patient reportedly unable to cooperate with the exam). ECG Findings * Atrial fibrillation. Left Ventricle * LV systolic function appears mildly decreased, estimated LVEF 45-50%. The inferior wall appears hypokinetic, although it is not well evaluated on this study. * Normal LV chamber size. * Mild concentric left ventricular hypertrophy. * Indeterminate diastolic function due to atrial fibrillation. Right Ventricle * Normal right ventricular size and function. Left Atrium * Normal left atrial size. Right Atrium * Mildly dilated right atrium. Aorta * The aortic root is borderline dilated, measuring 4.0 cm at the sinuses of Valsalva. Pericardium * There is no pericardial effusion present. IVC * The IVC is not dilated. Aortic Valve * Aortic valve not well visualized. Appears mildly sclerotic. * No aortic stenosis. * Mild aortic regurgitation. Mitral Valve * Normal mitral valve structure. * No mitral stenosis. * Trace mitral regurgitation. Tricuspid Valve * Tricuspid valve not well visualized. * No tricuspid stenosis. * Trace tricuspid regurgitation. * No evidence of pulmonary hypertension. Pulmonic Valve * Pulmonic valve not well visualized. * No pulmonic stenosis. * No pulmonic regurgitation. History Hypertension Hypercholesteremia Family History of CAD 05/09/2015 a Previous Echo was performed. Measurements: BP: 138/ 71 2D Normal Values IVSd: 1.20 cm 0.6 - 1.0 cm LVIDd: 5.50 cm 3.7 - 5.6 cm LVPWd: 1.20 cm 0.6 - 1.1 cm LVIDs: 4.00 cm 1.5 - 3.6 cm AO: 4.00 cm < 4.0 cm LA volume: 50 Aortic Valve AI pressure Half-time: 586.00 msec Tricuspid Valve TV Regurg Peak Grad: 2.60mmHg TV Regurg Peak Melvin: 27.00m/sec Updated by Danish Antonio MD, [facility] on 09/23/2016 7:32:49 AM electronically signed on 09/23/2016 7:33:50 AM with status of Final
[2016-09-23 07:56] LABS: Neutrophils # 5.7 K/mcL (1.6-8.9); Platelet Count 92 K/mcL (140-400)
[2016-09-23 07:57] LABS: Anisocytosis 1+ (Not Present); Platelet Estimate Decreased (Normal); Polychromasia 1+ (Not Present)
[2016-09-23] MEDS: Furosemide 40 MG TABLET PO SCH (08:24)
[2016-09-23 11:33] VITALS: BP 118/70
--- NOTE | 2016-09-23 14:39 | Discharge Summary ---
Date of Encounter: 09/23/16 Time of Encounter: 12:00 - Discharge Diagnosis (1) Acute blood loss anemia Priority: Primary Status: Acute (2) GI bleed Priority: Primary Status: Acute Qualifiers: GI bleed type/associated pathology: melena Qualified Code(s): K92.1 - Melena (3) Atrial fibrillation Priority: Secondary Status: Chronic Qualifiers: Atrial fibrillation type: chronic Qualified Code(s): I48.2 - Chronic atrial fibrillation (4) CKD (chronic kidney disease) stage 3, GFR 30-59 ml/min Priority: Secondary Status: Chronic (5) History of aortic aneurysm Priority: Secondary Status: Chronic (6) Hypertension Priority: Secondary Status: Chronic Qualifiers: Hypertension type: essential hypertension Qualified Code(s): I10 - Essential (primary) hypertension (7) Hyperlipidemia Priority: Secondary Status: Chronic Qualifiers: Hyperlipidemia type: unspecified Qualified Code(s): E78.5 - Hyperlipidemia , unspecified (8) BPH (benign prostatic hyperplasia) Priority: Secondary Status: Chronic Qualifiers: Prostatic enlargement morphology: unspecified morphology Lower urinary tract symptom presence: presence of symptoms unspecified Qualified Code(s): N40.0 - Benign prostatic hyperplasia without lower urinary tract symptoms - Discharge Medications Prescriptions: Omeprazole [PriLOSEC] 40 mg PO BIDAC 30 Days Home Medications: Atorvastatin [Lipitor] 40 mg PO HS 09/20/16 [History] Calcitriol [Calcitriol] 0.25 mcg PO DAILY 09/20/16 [History] Carvedilol [Coreg] 25 mg PO BID 09/20/16 [History] Furosemide [Lasix] 40 mg PO DAILY 09/20/16 [History] Hydralazine HCl 50 mg PO BID 09/20/16 [History] Losartan Potassium [Cozaar] 50 mg PO DAILY 09/20/16 [History] Potassium Chloride [Klor-Con M20] 20 meq PO DAILY 09/20/16 [History] Primidone [Mysoline] 50 mg PO HS 09/20/16 [History] Tamsulosin [Flomax] 0.4 mg PO DAILY 09/20/16 [History] Omeprazole [PriLOSEC] 40 mg PO BIDAC 30 Days 09/23/16 [Rx] Allergies/Adverse Reactions: Allergies lisinopril Adverse Reaction (Verified 09/20/16 16:14) Swelling of Lip/Tongue/Throat Procedures/tests Complete & Pending: Procedures Performed prior 72 hours Category Date Time Status EV echocardiogram Routine Y 09/22/16 14:52 Completed Date of admission: 09/20/16 18:43 Primary care physician: Adam Mayo Jr, MD Consults: 09/21/16 13:56 Consult to Invasive Line Access Team [CONS] Routine Reason for Consult: need another line limited access Line Type: EPIV PICC line indications: Limited vascular access Time Notified: 13:55 Call Completed: Yes Discharging clinician: Mingo Forbes Anticipated date of discharge: 09/23/16 - Patient Status Disposition: Home, Self-Care Condition: Fair Functional capacity at discharge: independent ambulation Overall status at discharge: patient is progressing back to baseline - Discharge Instructions Follow Up With: Danish Antonio MD [Partnered Physician] - Leah French CNP [Partnered Physician] - 09/29/16 10:40 am - Diet and Activity Activity: resume usual activities as tolerated Diet: low fat, low cholesterol, low salt diet Interval History: See below Hospital course: Mr. Michaels is a 76 year old male with PMH of Afib on Xarelto, CKD 3, BPH, HLD, Multiple aortic aneurysms s/p repair, Patient was admitted for management of Acute blood loss anemia from bleeding duodenal ulcer He presented with symptomatic anemia and melena. Baseline Hb of 13 Hb of 10 on admission, 7.7 09/21/16, s/p 2 units RBCs ,he improved to 8.6 09/22/16. He however had leukocytosis and response was not appropriate with amount of blood transfused. He had EGD on 09/21/16 with findings of bleeding ~8mm duodenal ulcer and non- bleeding gastric ulcer He received an additional 2 units of RBCs on 09/22/16 He has remained hemodynamically stable and able to sit out of bed. He is tolerating po and seen at bedside this morning with no new complains Colonoscopy in 2012 was unremarkable Due to history of multiple aneurysms, he had a Chest/Abdomen/Pelvis CT on admission which revealed post-thoracic aortic dissection stable graft, descending aorta dissection, not changed from prior per CT. ECHO done 09/22/16 revealed EF of 45-50%, dilated aortic root, mild LVH, Mildly dilated atrium.poor study overall. Patient's at the bedside reports his previous EF was 38% He is clinically stable for discharge home He is educated about medication reconciliation vz: Discontinuation of Xarelto and Aspirin. He will continue po Omeprazole 40mg bid at home He will follow up with Dr. Hutchinson as outpatient. I have personally discussed with Dr. Hutchinson, he agrees with plan above Patient also requested to have cardiology follow up here as his senior php web developer is in [place] and he did not want to make long trips anymore Appointment provided He is to continue rest of home medications Verbalized understanding Immunization is up to date - Time Spent with Patient Total time spent providing and/or coordinating discharge services: Less than 30 minutes - Constitutional Vitals: Temp Pulse Resp BP Pulse Ox 98.3 F 47 18 118/70 99 09/23/16 11:31 09/23/16 13:49 09/23/16 11:31 09/23/16 11:31 09/23/16 11:31 General appearance: Present: cooperative, A&O X 3, pleasant, no acute distress - Head Head exam: Present: atraumatic, normocephalic - Eye Eye exam: Present: PERRL, conjuntiva pink, sclera anicteric Pupils: Present: PERRL - Neck Neck exam general surgery: Present: supple, trachea midline. Absent: lymphadenopathy - Respiratory Respiratory exam: Present: CTAB. Absent: accessory muscle use, rales, rhonchi, wheezes - Cardiovascular Cardiovascular exam: Present: RRR, +S1, +S2. Absent: diastolic murmur, gallop, rubs, systolic murmur - GI/Abdominal GI/Abdominal exam: Present: normal bowel sounds, soft, no peritoneal signs. Absent: distended, tenderness - Extremities Exam Extremities exam: Present: warm, radial pulses palpable and symetrical. Absent : calf tenderness, cyanotic, pedal edema - Neurological Exam Neurological exam: Present: CN II-XII intact, oriented X3, no focal deficits. Absent: pronater drift, facial droop, speech deficit - Skin Skin exam: Present: dry, intact
== END 2016-09-23 16:44 | disposition home or self-care (01) | DRG 377 ==
LOC: EMEROO 14:24 → 3BNU 14:24 → SUATTDRO 18:43 → 3BNU 19:01 → 2NNU 09-21 16:47
PROVIDERS: ADMIT Nurse Practitioner Family; ATTEND Internal Medicine

== ENCOUNTER 2017-11-19 08:37 | Observation (INO) ==
[2017-11-19] MEDS ORDERED: Pantoprazole 80 MG in 0.9 % Sodium Chloride 50 ML IVPB ONE (09:10)
[2017-11-19] MEDS ORDERED: 0.9 % Sodium Chloride 1,000 ML IVC ONE (09:10)
--- NOTE | 2017-11-19 09:14 | Emergency Department Note ---
Disposition Clinical Impression: GI bleeding Qualifiers: GI bleed type/associated pathology: unspecified gastrointestinal hemorrhage type Qualified Code(s): K92.2 - Gastrointestinal hemorrhage, unspecified Disposition: Admitted As Inpatient Condition: Fair Referrals: Adam Mayo Jr, MD [Primary Care Provider] - Forms: ED Satisfaction Letter Time of Disposition: 10:58 GI Bleed HPI - General Chief complaint: ED GI Bleed Stated complaint: rectal bleeding Time Seen by Provider: 11/19/17 08:47 Source: patient Limitations: no limitations Nursing Notes Reviewed: Yes Vital Signs Reviewed: Yes - History of Present Illness HPI Narrative: Nontoxic-appearing 77-year-old male with a history of bleeding ulcers presents to the emergency department for evaluation of bright red blood per rectum just prior to arrival. The patient states that upon his awakening, he went to the restroom to urinate. He states that he felt as if he needed to pass gas and decided to sit down on the commode. He states that he did have a small amount of formed stool with copious amounts of bright red blood. In fact brought a piece of the tissue paper that he used at home that is saturated with bright red blood. He denies any associated abdominal pain, nausea, vomiting, chest pain, shortness breath, near syncope, or weakness. He states he states that he had a similar presentation approximately 2-3 years ago required fixation by endoscopy by Dr. Hutchinson. He is on Eliquis for chronic atrial fibrillation. 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 Improves with: nothing Worsens with: nothing Context: history of GI bleed, anticoagulant use Associated symptoms: Denies: abdominal pain, nausea, vomiting, fever, chills, headaches, shortness of breath, syncope/near-syncope Treatments Prior to Arrival: none - Related Data Home Medications Medication Instructions Recorded Confirmed Atorvastatin [Lipitor] 40 mg PO HS 09/20/16 11/19/17 Calcitriol 0.25 mcg PO DAILY 09/20/16 11/19/17 Carvedilol [Coreg] 12.5 mg PO BID 09/20/16 11/19/17 Hydralazine HCl 25 mg PO BID 09/20/16 11/19/17 Losartan Potassium [Cozaar] 50 mg PO DAILY 09/20/16 11/19/17 Potassium Chloride [Klor-Con M20] 20 meq PO DAILY 09/20/16 11/19/17 Primidone [Mysoline] 50 mg PO HS 09/20/16 11/19/17 Tamsulosin [Flomax] 0.4 mg PO DAILY 09/20/16 11/19/17 Bumetanide [Bumetanide] 2 mg PO DAILY 12/07/16 11/19/17 Apixaban [Eliquis] 5 mg PO BID 11/19/17 11/19/17 Aspirin Enteric Coated [Aspirin EC] 81 mg PO DAILY 11/19/17 11/19/17 Docusate Sodium [Colace] 100 mg PO DAILY PRN 11/19/17 11/19/17 Omeprazole [PriLOSEC] 40 mg PO DAILY 11/19/17 11/19/17 Allergies Allergy/AdvReac Type Severity Reaction Status Date / Time lisinopril AdvReac Swelling Verified 11/19/17 08:43 of Lip/Tongue/Throat All systems ED: reviewed and negative except as stated. Constitutional: Denies: fever, chills, weakness, weight change Eyes: Denies: eye pain, eye discharge, vision change ENT ED: Denies: ear pain, throat pain, dental pain, hearing loss, epistaxis, congestion, dysphagia Cardiovascular: Denies: chest pain, palpitations, dyspnea on exertion, edema, syncope Respiratory: Denies: cough, dyspnea, wheezes, hemoptysis, stridor Gastrointestinal: Reports: as per HPI, hematochezia. Denies: abdominal pain, nausea, vomiting, diarrhea, constipation, hematemesis, melena Genitourinary: Denies: urgency, dysuria, frequency, hematuria Musculoskeletal: Denies: back pain, neck pain, arthralgia, myalgia Integumentary: Denies: rash, abrasion, lesions Neurological: Denies: headache, weakness, numbness, paresthesias, confusion, abnormal gait, vertigo Psychiatric: Denies: anxiety, depression, suicidal thoughts, homicidal thoughts , auditory hallucinations, visual hallucinations Endocrine: Denies: fatigue Hematological/Lymphatic: Denies: easy bleeding, easy bruising Allergic/Immunologic: Denies: facial swelling, urticaria Past Medical History - Past Medical History Attestation: Yes The following information was validated with the patient. Source: patient, nursing notes reviewed Medical history: Reports: aortic aneurysm, CHF, GERD, GI bleed, hypertension, renal disease Surgical history: Reports: appendectomy, cholecystectomy, herniorrhaphy, orthopedic, other Psychiatric history: Reports: depression - Social History Smoking Status: Never smoker Smokeless Tobacco Status: No Alcohol use: Reports: none Drug use: Reports: none Physical Exam - General Limitations: no limitations General appearance: alert - Head Head exam: atraumatic, normocephalic, normal inspection - Eye Eye exam: Present: normal appearance, PERRL, EOMI. Absent: nystagmus - ENT ENT exam: mucous membranes moist - Neck Neck exam: Present: normal inspection, full ROM, trachea midline - Chest Chest inspection: Present: normal inspection, symmetric chest wall rise - Respiratory Respiratory exam: Present: normal lung sounds bilaterally. Absent: respiratory distress, wheezes, stridor, accessory muscle use, prolonged expiratory phase - Cardiovascular Cardiovascular exam: Present: regular rate, irregular rhythm, normal heart sounds - Abdominal Exam Abdominal exam: Present: soft, Non-Tender, normal bowel sounds. Absent: tenderness, distention, guarding, rebound, rigidity, mass - Extremities Exam Extremities exam: Present: normal inspection, full ROM. Absent: tenderness, pedal edema - Neurological Exam Neurological exam: Present: alert, oriented X3, normal gait - Psychiatric Psychiatric exam: Present: normal affect, normal mood - Skin Skin exam: Present: warm, dry, intact, normal color. Absent: rash Course Course Narrative: The patient has had another bowel movement that was positive for grossly bloody stools here in the department. We will admit to the hospital service for gastroenterology consultation. 1050: I spoke with Dr. Good, hospitalist on-call. Dr. Good has accepted the patient for admission to his services. I discussed this patient's plan and case with Dr. Kramer. Dr. Kramer has had a [id number] evaluation with the patient and agrees with this plan. Vital Signs Temperature 98.4 F 11/19/17 08:43 Pulse Rate 73 11/19/17 08:43 Respiratory Rate 20 11/19/17 08:43 Blood Pressure 188/85 11/19/17 08:43 O2 Sat by Pulse Oximetry 96 11/19/17 08:43 Temperature 98.4 F 11/19/17 08:43 Pulse Rate 50 11/19/17 12:06 Respiratory Rate 14 11/19/17 12:06 Blood Pressure 172/94 11/19/17 12:06 O2 Sat by Pulse Oximetry 99 11/19/17 12:06 Oxygen Delivery Oxygen Delivery Room Air GI Bleed - Medical Records Medical records reviewed: Yes I reviewed the patient's medical records. - Lab Data Lab results reviewed: Yes I reviewed the patient's lab results. Result diagrams: 11/19/17 08:52 11/19/17 08:52 Lab Results 11/19/17 11/19/17 11/19/17 Range/Units 08:52 08:52 08:52 WBC 5.9 (4.3-11.1) K/mcL RBC 4.89 (4.19-5.50) M/mcL Hgb 13.2 (12.9-16.9) g/dL Hct 41.8 (37.5-50.1) % MCV 85.5 (83.0-100.0) fL MCH 27.0 L (28.0-33.3) pg MCHC 31.6 (31.6-35.5) g/dL RDW 15.9 H (11.5-14.5) % Plt Count 164 (140-400) K/mcL MPV 10.7 (9.4-12.4) fL Immature Gran % 0.2 (0-4) % Seg Neutrophils % 70.6 % Lymphocytes % 16.6 % Monocytes % 9.8 % Eosinophils % 2.5 % Basophils % 0.3 % Neutrophils # 4.2 (1.6-8.9) K/mcL Lymphocytes # 1.0 (0.6-4.6) K/mcL Monocytes # 0.6 (0.0-1.3) K/mcL Eosinophils # 0.2 (0.0-0.6) K/mcL Basophils # 0.0 (0.0-0.2) K/mcL PT 16.9 H (9.4-12.1) Seconds INR 1.6 APTT 38.2 H (26.0-36.0) Seconds Sodium 142 (136-145) mEq/L Potassium 4.0 (3.5-5.1) mEq/L Chloride 107 (98-107) mEq/L Carbon Dioxide 28 (23-29) mEq/L BUN 32 H (8-23) mg/dL Creatinine 2.07 H (0.70-1.30) mg/dL Est GFR ( Amer) 38 L (> 60) Est GFR (Non-Af Amer) 31 L (> 60) BUN/Creatinine Ratio 15 (6-26) Glucose 86 (70-105) mg/dL Calculated Osmolality 300 (280-300) Calcium 9.0 (8.6-10.3) mg/dL Blood Type Antibody Screen 11/19/17 Range/Units 09:10 WBC (4.3-11.1) K/mcL RBC (4.19-5.50) M/mcL Hgb (12.9-16.9) g/dL Hct (37.5-50.1) % MCV (83.0-100.0) fL MCH (28.0-33.3) pg MCHC (31.6-35.5) g/dL RDW (11.5-14.5) % Plt Count (140-400) K/mcL MPV (9.4-12.4) fL Immature Gran % (0-4) % Seg Neutrophils % % Lymphocytes % % Monocytes % % Eosinophils % % Basophils % % Neutrophils # (1.6-8.9) K/mcL Lymphocytes # (0.6-4.6) K/mcL Monocytes # (0.0-1.3) K/mcL Eosinophils # (0.0-0.6) K/mcL Basophils # (0.0-0.2) K/mcL PT (9.4-12.1) Seconds INR APTT (26.0-36.0) Seconds Sodium (136-145) mEq/L Potassium (3.5-5.1) mEq/L Chloride (98-107) mEq/L Carbon Dioxide (23-29) mEq/L BUN (8-23) mg/dL Creatinine (0.70-1.30) mg/dL Est GFR ( Amer) (> 60) Est GFR (Non-Af Amer) (> 60) BUN/Creatinine Ratio (6-26) Glucose (70-105) mg/dL Calculated Osmolality (280-300) Calcium (8.6-10.3) mg/dL Blood Type A POSITIVE Antibody Screen NEGATIVE - Radiology Data Radiology results reviewed: Yes I reviewed the patient's radiology results. - EKG Data EKG attestation: Yes I reviewed and interpreted this EKG. EKG results narrative: EKG reviewed by Dr. Kramer as well. EKG shows atrial flutter with slow ventricular response at a rate of 53 bpm. QRS duration 102, QT/QTc interval 448 /431.
--- NOTE | 2017-11-19 09:42 | Emergency Department Note ---
Disposition Clinical Impression: GI bleeding Disposition: Admitted As Inpatient Condition: Fair General Adult HPI - General Chief complaint: ED GI Bleed Stated complaint: rectal bleeding Time Seen by Provider: 11/19/17 08:47 Source: patient Limitations: no limitations - History of Present Illness Pain Scale: 0 - Related Data Home Medications Medication Instructions Recorded Confirmed Atorvastatin [Lipitor] 40 mg PO HS 09/20/16 11/19/17 Calcitriol 0.25 mcg PO DAILY 09/20/16 11/19/17 Carvedilol [Coreg] 12.5 mg PO BID 09/20/16 11/19/17 Hydralazine HCl 25 mg PO BID 09/20/16 11/19/17 Losartan Potassium [Cozaar] 50 mg PO DAILY 09/20/16 11/19/17 Potassium Chloride [Klor-Con M20] 20 meq PO DAILY 09/20/16 11/19/17 Primidone [Mysoline] 50 mg PO HS 09/20/16 11/19/17 Tamsulosin [Flomax] 0.4 mg PO DAILY 09/20/16 11/19/17 Bumetanide [Bumetanide] 2 mg PO DAILY 12/07/16 11/19/17 Apixaban [Eliquis] 5 mg PO BID 11/19/17 11/19/17 Aspirin Enteric Coated [Aspirin EC] 81 mg PO DAILY 11/19/17 11/19/17 Docusate Sodium [Colace] 100 mg PO DAILY PRN 11/19/17 11/19/17 Omeprazole [PriLOSEC] 40 mg PO DAILY 11/19/17 11/19/17 Allergies Allergy/AdvReac Type Severity Reaction Status Date / Time lisinopril AdvReac Swelling Verified 11/19/17 08:43 of Lip/Tongue/Throat Constitutional: Denies: fever, chills, weakness, weight change Eyes: Denies: eye pain, eye discharge, vision change ENT ED: Denies: ear pain, throat pain, dental pain, hearing loss, epistaxis, congestion, dysphagia Cardiovascular: Denies: chest pain, palpitations, dyspnea on exertion, edema, syncope Respiratory: Denies: cough, dyspnea, wheezes, hemoptysis, stridor Gastrointestinal: Reports: as per HPI, hematochezia. Denies: abdominal pain, nausea, vomiting, diarrhea, constipation, hematemesis, melena Genitourinary: Denies: urgency, dysuria, frequency, hematuria Musculoskeletal: Denies: back pain, neck pain, arthralgia, myalgia Integumentary: Denies: rash, abrasion, lesions Neurological: Denies: headache, weakness, numbness, paresthesias, confusion, abnormal gait, vertigo Psychiatric: Denies: anxiety, depression, suicidal thoughts, homicidal thoughts , auditory hallucinations, visual hallucinations Endocrine: Denies: fatigue Hematological/Lymphatic: Denies: easy bleeding, easy bruising Allergic/Immunologic: Denies: facial swelling, urticaria Past Medical History - Past Medical History Medical history: Reports: aortic aneurysm, CHF, GERD, GI bleed, hypertension, renal disease Surgical history: Reports: appendectomy, cholecystectomy, herniorrhaphy, orthopedic, other Psychiatric history: Reports: depression - Social History Smoking Status: Never smoker Smokeless Tobacco Status: No Alcohol use: Reports: none Drug use: Reports: none Physical Exam - General Limitations: no limitations General appearance: alert Course Vital Signs Temperature 98.4 F 11/19/17 08:43 Pulse Rate 73 11/19/17 08:43 Respiratory Rate 20 11/19/17 08:43 Blood Pressure 188/85 11/19/17 08:43 O2 Sat by Pulse Oximetry 96 11/19/17 08:43 Temperature 97.6 F 11/19/17 14:20 Pulse Rate 72 11/19/17 14:20 Respiratory Rate 15 11/19/17 14:20 Blood Pressure 190/90 11/19/17 14:20 O2 Sat by Pulse Oximetry 98 11/19/17 14:20 Oxygen Delivery Oxygen Delivery Room Air Medical Decision Making - Lab Data Result diagrams: 11/19/17 17:21 11/19/17 08:52 Lab Results 11/19/17 11/19/17 11/19/17 Range/Units 08:52 08:52 08:52 WBC 5.9 (4.3-11.1) K/mcL RBC 4.89 (4.19-5.50) M/mcL Hgb 13.2 (12.9-16.9) g/dL Hct 41.8 (37.5-50.1) % MCV 85.5 (83.0-100.0) fL MCH 27.0 L (28.0-33.3) pg MCHC 31.6 (31.6-35.5) g/dL RDW 15.9 H (11.5-14.5) % Plt Count 164 (140-400) K/mcL MPV 10.7 (9.4-12.4) fL Immature Gran % 0.2 (0-4) % Seg Neutrophils % 70.6 % Lymphocytes % 16.6 % Monocytes % 9.8 % Eosinophils % 2.5 % Basophils % 0.3 % Neutrophils # 4.2 (1.6-8.9) K/mcL Lymphocytes # 1.0 (0.6-4.6) K/mcL Monocytes # 0.6 (0.0-1.3) K/mcL Eosinophils # 0.2 (0.0-0.6) K/mcL Basophils # 0.0 (0.0-0.2) K/mcL PT 16.9 H (9.4-12.1) Seconds INR 1.6 APTT 38.2 H (26.0-36.0) Seconds Sodium 142 (136-145) mEq/L Potassium 4.0 (3.5-5.1) mEq/L Chloride 107 (98-107) mEq/L Carbon Dioxide 28 (23-29) mEq/L BUN 32 H (8-23) mg/dL Creatinine 2.07 H (0.70-1.30) mg/dL Est GFR ( Amer) 38 L (> 60) Est GFR (Non-Af Amer) 31 L (> 60) BUN/Creatinine Ratio 15 (6-26) Glucose 86 (70-105) mg/dL Calculated Osmolality 300 (280-300) Calcium 9.0 (8.6-10.3) mg/dL Blood Type Antibody Screen 11/19/17 Range/Units 09:10 WBC (4.3-11.1) K/mcL RBC (4.19-5.50) M/mcL Hgb (12.9-16.9) g/dL Hct (37.5-50.1) % MCV (83.0-100.0) fL MCH (28.0-33.3) pg MCHC (31.6-35.5) g/dL RDW (11.5-14.5) % Plt Count (140-400) K/mcL MPV (9.4-12.4) fL Immature Gran % (0-4) % Seg Neutrophils % % Lymphocytes % % Monocytes % % Eosinophils % % Basophils % % Neutrophils # (1.6-8.9) K/mcL Lymphocytes # (0.6-4.6) K/mcL Monocytes # (0.0-1.3) K/mcL Eosinophils # (0.0-0.6) K/mcL Basophils # (0.0-0.2) K/mcL PT (9.4-12.1) Seconds INR APTT (26.0-36.0) Seconds Sodium (136-145) mEq/L Potassium (3.5-5.1) mEq/L Chloride (98-107) mEq/L Carbon Dioxide (23-29) mEq/L BUN (8-23) mg/dL Creatinine (0.70-1.30) mg/dL Est GFR ( Amer) (> 60) Est GFR (Non-Af Amer) (> 60) BUN/Creatinine Ratio (6-26) Glucose (70-105) mg/dL Calculated Osmolality (280-300) Calcium (8.6-10.3) mg/dL Blood Type A POSITIVE Antibody Screen NEGATIVE Attestation Statement - Attestation Attestation: For this encounter, I have reviewed the INTERNET DATABASE SPECIALIST or PA documentation, treatment plan, and medical decision making; and I have had face to face time with this patient. [id number] time provided Patient evaluated in conjunction with the nurse practitioner for bloody stools. The patient takes novel anticoagulants for atrial fibrillation. Does not appear in any acute distress at the time of my exam. Labs and CT pending at the time of this note
[2017-11-19 09:54] LABS: Hematocrit 41.8 % (37.5-50.1); Hemoglobin 13.2 g/dL (12.9-16.9); Immature Granulocytes % 0.2 % (0-4); Lymphocytes % 16.6 %; Mean Corpuscular HGB Conc 31.6 g/dL (31.6-35.5); Mean Corpuscular Volume 85.5 fL (83.0-100.0); Mean Platelet Volume 10.7 fL (9.4-12.4); Monocytes % 9.8 %; Platelet Count 164 K/mcL (140-400); Red Blood Count 4.89 M/mcL (4.19-5.50); Red Cell Distribution Width 15.9 % (11.5-14.5); Segmented Neutrophils % 70.6 %
[2017-11-19 09:55] LABS: Basophils % 0.3 %; Eosinophils # 0.2 K/mcL (0.0-0.6); Eosinophils % 2.5 %; Monocytes # 0.6 K/mcL (0.0-1.3); Neutrophils # 4.2 K/mcL (1.6-8.9)
[2017-11-19 10:07] LABS: INR 1.6; Prothrombin Time 16.9 Seconds (9.4-12.1)
[2017-11-19 10:10] LABS: Activated Partial Thrombo Time 38.2 Seconds (26.0-36.0)
--- NOTE | 2017-11-19 11:05 | Internal Med History&Physical ---
Date of Encounter: 11/19/17 Time of Encounter: 11:05 Internal Medicine - H&P: HPI Admitted From: Emergency Dept Plans for Post Hospital Care: Home History of present illness: Mr. Michaels is a 77 year old man who presented this am in the ER c/o BRBPR and brought in toilet paper soaked with dark red blood. He does have a history of a prior UGIB due to a gastric ulcer which was clipped. His most recent EGD () showed oozing of blood from the endoclip site. His presentation at that time was reportedly also BRBPR and not dark black stools. He is taking Eliquis for chronic A-Fib and aspirin 81 mg; both have been held. His Hgb today is 13.2 and 4 days ago 14.2. He's hypertensive but not having any other significant symptoms and is otherwise stable. His ECG shows A-Flutter with a slow ventricular response and rate in 50s. He has a history of an aortic aneurysm s/p repair but does not c/o of chest, back or abdomiinal pain and has strong distal pulses. Gastroenterology hs been called and will see him today. He was made NPO and the ER gave an 80 mg bolus of protonix and a drip was started. His last dose of Eliquis was last night. Hes not had further rectal bleeding since comming to the ER. Past Med Surg Social Fam HX - Past Medical History Medical history: aortic aneurysm, CHF, GERD, GI bleed, hypertension, renal disease Psychiatric history: depression - Past Surgical History Surgical History: appendectomy, cholecystectomy, herniorrhaphy, orthopedic, other - Social History Smoking Status: Never smoker Smokeless Tobacco Status: No Alcohol use: none Drug use: none - Family History Father Living Status: Hx Family Endocrine Disorder: Yes (kidney disease) Mother Living Status: Hx Family Cardiac Disorders: Yes Internal Medicine - H&P: Meds Atorvastatin [Lipitor] 40 mg PO HS 09/20/16 [History] Calcitriol 0.25 mcg PO DAILY 09/20/16 [History] Carvedilol [Coreg] 12.5 mg PO BID 09/20/16 [History] Hydralazine HCl 25 mg PO BID 09/20/16 [History] Losartan Potassium [Cozaar] 50 mg PO DAILY 09/20/16 [History] Potassium Chloride [Klor-Con M20] 20 meq PO DAILY 09/20/16 [History] Primidone [Mysoline] 50 mg PO HS 09/20/16 [History] Tamsulosin [Flomax] 0.4 mg PO DAILY 09/20/16 [History] Bumetanide [Bumetanide] 2 mg PO DAILY 12/07/16 [History] Apixaban [Eliquis] 5 mg PO BID 11/19/17 [History] Aspirin Enteric Coated [Aspirin EC] 81 mg PO DAILY 11/19/17 [History] Docusate Sodium [Colace] 100 mg PO DAILY PRN 11/19/17 [History] Omeprazole [PriLOSEC] 40 mg PO DAILY 11/19/17 [History] 3 Allergy/AdvReac Type Severity Reaction Status Date / Time lisinopril AdvReac Swelling Verified 11/19/17 08:43 of Lip/Tongue/Throat All Systems PM: A 10-system review of systems was performed and is negative for pertinent findings except as documented above in the HPI. - Constitutional Constitutional: no chills, no fever(s), no lethargy - EENT Eyes: no change in vision, no diplopia Nose, mouth and throat: no bleeding gums, no dry mouth, no facial pain - Cardiovascular Cardiovascular ROS IM: no chest pain, no claudication, no diaphoresis, no orthopnea, no palpitations - Gastrointestinal Gastrointestinal: hematochezia, melena, tenesmus, no abdominal pain, no bloating , no coffee ground emesis, no constipation, no diarrhea, no dysphagia - Genitourinary Genitourinary ROS male: no dysuria, no hematuria, no urinary frequency, no urinary incontinence - Integumentary Integumentary IM: no new lesions, no rash, no jaundice - Neurological Neurological ROS: no confusion, no disequilibrium, no dizziness, no headache(s) - Allergic/Immunologic Allergic/Immunologic: no tongue swelling - Constitutional Vitals: Temp Pulse Resp BP Pulse Ox 98.4 F 53 14 186/106 98 11/19/17 08:43 11/19/17 10:43 11/19/17 10:43 11/19/17 10:43 11/19/17 10:43 - Head Head exam: Present: atraumatic, normocephalic - Eye Eye exam: Present: EOMI, PERRL, conjuntiva pink, sclera anicteric Pupils: Present: PERRL - Neck Neck exam general surgery: Present: supple, trachea midline. Absent: lymphadenopathy - Respiratory Respiratory exam: Present: CTAB. Absent: accessory muscle use, rales, rhonchi, wheezes - Cardiovascular Cardiovascular exam: Present: RRR, +S1, +S2. Absent: diastolic murmur, gallop, rubs, systolic murmur - GI/Abdominal GI/Abdominal exam: Present: normal bowel sounds, soft, no peritoneal signs. Absent: distended, guarding, tenderness - Extremities Exam Extremities exam: Present: warm, radial pulses palpable and symmetrical. Absent : calf tenderness, cyanotic, pedal edema - Neurological Exam Neurological exam: Present: CN II-XII intact, oriented X3, no focal deficits. Absent: pronater drift, facial droop, speech deficit - Skin Skin exam: Present: dry, intact Internal Med - H&P Results - Labs CBC & Chem 7: 11/19/17 08:52 11/19/17 08:52 Labs: Short CBC 11/19/17 Range/Units 08:52 WBC 5.9 (4.3-11.1) K/mcL Hgb 13.2 (12.9-16.9) g/dL Hct 41.8 (37.5-50.1) % Plt Count 164 (140-400) K/mcL Neutrophils # 4.2 (1.6-8.9) K/mcL BMP 11/19/17 08:52 Sodium 142 Potassium 4.0 Chloride 107 Carbon Dioxide 28 BUN 32 H Creatinine 2.07 H Glucose 86 Calcium 9.0 - Impressions ITS Impressions Abdomen/Pelvis CT 11/19/17 09:10 IMPRESSION: Distal colonic diverticulosis without radiographic evidence of active inflammation. Next infrarenal 3.0 cm abdominal aortic aneurysm, stable. See below. RECOMMENDATIONS: Managing Abdominal Aortic Aneurysms 2.6-2.9 cm: Every 5 years* 3.0-3.4 cm: Every 3 years. 3.5-3.9 cm: Every 1 year. 4.0-4.4 cm: Every 1 year. Recommend vascular consultation. 4.5-5.4 cm: Every 6 months. Recommend vascular consultation. Greater than or equal to 5.5 cm: Referral to vascular surgeon. *For abdominal aortas with maximum diameter of 2.6-2.9 cm meeting criteria for AAA (>50% of proximal normal segment). Reference: J Vasc Surg. 2008;50(4 Suppl):S2-49 D/ / Rach Khan Cha, MD / Rach Khan Cha, MD Interpreting Provider: Rach Khan Cha, MD - Assessment and plan (1) GI bleed Current Visit: Yes Status: Acute Assessment and plan: Serial H&H GI consulted Transfuse if Hgb < 7 Continue Protonix Hgb >13 Continue holding Eliquis ans Aspirin NPO Qualifiers: GI bleed type/associated pathology: unspecified gastrointestinal hemorrhage type Qualified Code(s): K92.2 - Gastrointestinal hemorrhage, unspecified (2) Acute blood loss anemia Current Visit: Yes Status: Acute Assessment and plan: Treansfuse if Hgb < 7 Contine serial H&H (3) Anticoagulant long-term use Current Visit: No Status: Chronic Assessment and plan: On Eliquis for stroke prophylaxis Being held along with aspirin (4) Hypertensive urgency Current Visit: Yes Status: Acute Assessment and plan: History of HTN and off oral meds this am PRN Hydralazine added (5) History of aortic aneurysm Current Visit: No Status: Chronic Assessment and plan: No signs of dissection Strong equal distal pulses BP too high so PRN Hydralazine added NPO but continue oral antihypertensives not given this am. - Time Spent With Patient Total time spent is greater than 50% in coordination of care (as documented) at patient's floor/unit and/or counseling patient:
[2017-11-19] MEDS: Pantoprazole 40 MG in 0.9 % Sodium Chloride Mini Bag 100 ML IVC SCH ×2 (15:17→19:34)
--- NOTE | 2017-11-19 15:37 | Internal Medicine Consult Note ---
Date of Encounter: 11/19/17 Time of Encounter: 15:35 - Assessment and Plan (1) Hypertension Current Visit: No Status: Chronic Qualifiers: Hypertension type: essential hypertension Qualified Code(s): I10 - Essential (primary) hypertension (2) GI bleed Current Visit: Yes Status: Acute Assessment and plan: For the most part, because he is asymptomatic, I suspect this is a diverticular bleed. Bleeding from an upper source is certainly much less likely, but still remains possible given her remote history of duodenal ulcer disease. AVMs are also a possibility Plan is to pursue both upper and lower endoscopy in the morning, I have discussed risks and benefits of both procedures, he has signed consent. Hospitalist has started IV PPI, and we will continue to watch his blood counts. Certainly hold the Eliquis and ASA. In the future, when anticoagulation is restarted, which consider Coumadin over the direct thrombin inhibitor. Qualifiers: GI bleed type/associated pathology: unspecified gastrointestinal hemorrhage type Qualified Code(s): K92.2 - Gastrointestinal hemorrhage, unspecified (3) History of thoracic aortic aneurysm repair Current Visit: Yes Status: Chronic (4) CKD (chronic kidney disease) stage 3, GFR 30-59 ml/min Current Visit: No Status: Chronic Internal Medicine - CN: HPI - Data of Consult Patient: known to practice within the last 3 years Consult date: 11/19/17 Requesting Physician: Mingo Forbes MD - Consult Narrative Reason for consult: Bright Red Rectal Bleeding History of present illness: Mr. Michaels is a 77 year old male who presented to the ER this morning. I was asked to see him for the hospitalist service. This gentleman awoke this morning having urge of acute need of bowel movement, at that time had moderate amounts of bright red rectal bleeding. He had no cramping. No previous bout. No recent fever chills or weight changes. His last endoscopy, by myself, was roughly 5 years ago with diverticulosis being found. He does have remote history of colon polyps. Last EGD, one year ago for duodenal bleeding ulcer that had to be clipped. He has had 3 bowel movements, since being on the floor, most of these again bloody, up and around, he has not lightheaded no sweats diaphoresis or near syncope. His blood pressure is somewhat elevated at this time, he is not tachycardic. Appears to be in no distress. Past Med Surg Social Fam HX - Past Medical History Medical history: aortic aneurysm, GERD, GI bleed, hypertension, renal disease, other (Previous history of thoracic aneurysm repair.) Psychiatric history: depression - Past Surgical History Surgical History: appendectomy, cholecystectomy, herniorrhaphy, orthopedic, other, other (Thoracic aneurysmal repair, 2007.) - Social History Smoking Status: Never smoker Smokeless Tobacco Status: No Alcohol use: none Drug use: none - Family History Father Living Status: Cause of : History of CK D Hx Family Endocrine Disorder: Yes (kidney disease) Mother Living Status: Cause of : Aneurysmal rupture Hx Family Cardiac Disorders: Yes - Constitutional Constitutional: no chills, no fatigue, no fever(s), no falls, no night sweats, no weakness, no weight loss - Cardiovascular Cardiovascular ROS IM: irregular heart rhythm, no chest pain, no diaphoresis, no dyspnea, no palpitations, no syncope - Respiratory Respiratory: no cough, no dyspnea, no chest congestion - Gastrointestinal Gastrointestinal: diarrhea, hematochezia, loose stools, no abdominal pain, no heartburn, no hematemesis, no melena, no nausea, no vomiting - Neurological Neurological ROS: no abnormal gait, no focal weakness, no frequent falls, no lack of coordination, no loss of vision Additional comments: Questionable memory difficulty - Hematologic/Lymphatic Hematologic/Lymphatic: no easy bleeding, no easy bruising, no lymphadenopathy Internal Medicine - CN: Meds Atorvastatin [Lipitor] 40 mg PO HS 09/20/16 [History] Calcitriol 0.25 mcg PO DAILY 09/20/16 [History] Carvedilol [Coreg] 12.5 mg PO BID 09/20/16 [History] Hydralazine HCl 25 mg PO BID 09/20/16 [History] Losartan Potassium [Cozaar] 50 mg PO DAILY 09/20/16 [History] Potassium Chloride [Klor-Con M20] 20 meq PO DAILY 09/20/16 [History] Primidone [Mysoline] 50 mg PO HS 09/20/16 [History] Tamsulosin [Flomax] 0.4 mg PO DAILY 09/20/16 [History] Bumetanide [Bumetanide] 2 mg PO DAILY 12/07/16 [History] Apixaban [Eliquis] 5 mg PO BID 11/19/17 [History] Aspirin Enteric Coated [Aspirin EC] 81 mg PO DAILY 11/19/17 [History] Docusate Sodium [Colace] 100 mg PO DAILY PRN 11/19/17 [History] Omeprazole [PriLOSEC] 40 mg PO DAILY 11/19/17 [History] 3 Allergy/AdvReac Type Severity Reaction Status Date / Time lisinopril AdvReac Swelling Verified 11/19/17 08:43 of Lip/Tongue/Throat Internal Medicine - CN: Exam - Constitutional Vitals: Temp Pulse Resp BP Pulse Ox 98.4 F 57 14 193/101 98 11/19/17 08:43 11/19/17 13:12 11/19/17 13:56 11/19/17 13:56 11/19/17 13:12 General appearance IM: Present: A&O X 3, pleasant, no acute distress, answers questions appropriately - Eye Eye exam: Present: EOMI, PERRL, conjuntiva pink. Absent: scleral icterus - ENT ENT exam: Present: normal exam - Neck Neck exam general surgery: Present: full ROM, supple, trachea midline - Respiratory Respiratory exam: Present: CTAB. Absent: wheezes, tachypnea - Cardiovascular Cardiovascular exam IM: Present: irregular rhythm, +S1, +S2. Absent: JVD, +S3, +S4 - GI/Abdominal GI/Abdominal exam IM: Present: normal bowel sounds, soft. Absent: hepatomegaly , rebound, rigid, splenomegaly - Rectal Rectal exam: Present: deferred Internal Medicine - CN: Reslt - Labs CBC & Chem 7: 11/19/17 08:52 11/19/17 08:52 - ABG Interpretation ABG results: PT/INR, D-dimer PT 16.9 Seconds (9.4-12.1) H 11/19/17 08:52 Consult Discharge Plan - Plan Referrals: Adam Mayo Jr, MD [Primary Care Provider] -
[2017-11-19] MEDS ORDERED: hydrALAZINE 25 MG TABLET PO SCH (15:45)
[2017-11-19] MEDS ORDERED: PEG/Electrolytes/Ascorbic Acid 1 EACH POWD.PACK PO ONE (15:45)
[2017-11-19 17:33] LABS: Hematocrit 41.9 % (37.5-50.1); Hemoglobin 13.5 g/dL (12.9-16.9)
[2017-11-19] MEDS: Primidone 50 MG TABLET PO SCH (21:06)
[2017-11-19] MEDS: Acetaminophen 325 MG TABLET PO PRN (21:10)
[2017-11-19] MEDS ORDERED: hydrALAZINE 25 MG TABLET PO ONE (22:44)
[2017-11-19 22:53] LABS: Hematocrit 42.3 % (37.5-50.1); Hemoglobin 13.6 g/dL (12.9-16.9)
[2017-11-19] MEDS ORDERED: amLODIPine 5 MG TABLET PO SCH (23:00)
[2017-11-20] MEDS: Pantoprazole 40 MG in 0.9 % Sodium Chloride Mini Bag 100 ML IVC SCH ×3 (05:24→21:23)
[2017-11-20] MEDS ORDERED: *HR* Midazolam HCl 5 MG/5 ML VIAL IVP ONE (07:58)
[2017-11-20] MEDS ORDERED: *HR* FentaNYL (PF) 100 MCG/2 ML VIAL ONE (07:58)
[2017-11-20] MEDS ORDERED: Tetracaine/Benzocaine/Butamben 200MG/SPRAY (100SPY/BOT) MM ONE ×2 (08:17→08:23)
[2017-11-20] MEDS ORDERED: *HR* FentaNYL (PF) 100 MCG/2 ML VIAL IVP ONE (08:23)
[2017-11-20] MEDS ORDERED: *HR* Midazolam HCl 2 MG/2 ML VIAL IVP ONE (08:23)
[2017-11-20] MEDS ORDERED: Simethicone 40 MG/0.6 ML MLS IR ONE (08:23)
--- NOTE | 2017-11-20 08:26 | Pre-Sedation Evaluation ---
Pre-sedation evaluation - Pre-sedation checklist Date of procedure: 11/20/17 Procedure: egd, colonoscopy Recent Vitals: Last Vital Signs Temp 98.6 F 11/20/17 07:35 Pulse 72 11/20/17 08:13 Resp 16 11/20/17 08:13 BP 195/100 11/20/17 08:13 Pulse Ox 97 11/20/17 08:13 H&P (including ROS) documented in medical record: Yes Previous reaction to sedatives/anesthetics: No Dietary Status: NPO after Midnight Airway Assessment: Patient can open mouth completely, TMJ function normal Dentition: full dentition Possible difficult airway: No ASA Classification *see protocol: CLASS II-Mild systemic disease
[2017-11-20] MEDS ORDERED: 0.9 % Sodium Chloride 1,000 ML IVC SCH (08:30)
--- NOTE | 2017-11-20 09:11 | Event Note ---
Date of Encounter: 11/20/17 Time of Encounter: 09:08 EGD: 1. Small Gastric erosion; Biopsies for H. Pylori pending. Will follow up in the outpt setting 2. Large Duodenal diverticulum Colonoscopy 1. 3 small polyps in the Ileocecal area, removed. 2. Noted pandiverticula, spec. some blood around a mid sigmoid diverticula as source of bleeding. Would cont. to hold the ASA and Eliquis. I will start something soon in the outpt setting. Most likely safe to DC in the AM of 11/21.
--- NOTE | 2017-11-20 09:14 | Internal Medicine Consult Note ---
Date of Encounter: 11/20/17 Time of Encounter: 09:30 - Assessment and Plan (1) Diverticular hemorrhage Current Visit: Yes Status: Acute Assessment and plan: Will aiden Hgb this AM.. if no further bleeding, can safely DC 11/21. Bleeding for the most part has stopped at this point. (2) Hypertension Current Visit: Yes Status: Chronic Qualifiers: Hypertension type: essential hypertension Qualified Code(s): I10 - Essential (primary) hypertension (3) GI bleed Current Visit: Yes Status: Acute Qualifiers: GI bleed type/associated pathology: diverticulosis Qualified Code(s): K57.91 - Diverticulosis of intestine, part unspecified, without perforation or abscess with bleeding (4) History of thoracic aortic aneurysm repair Current Visit: Yes Status: Chronic (5) CKD (chronic kidney disease) stage 3, GFR 30-59 ml/min Current Visit: Yes Status: Chronic (6) Atrial flutter Current Visit: Yes Status: Chronic Qualifiers: Qualified Code(s): I48.92 - Unspecified atrial flutter Internal Medicine - CN: HPI - Data of Consult Requesting Physician: Mingo Forbes MD - Consult Narrative History of present illness: Mr. Michaels is a 77 year old male Past Med Surg Social Fam HX - Past Medical History Medical history: aortic aneurysm, CHF, GERD, GI bleed, hypertension, renal disease Psychiatric history: depression - Past Surgical History Surgical History: appendectomy, cholecystectomy, herniorrhaphy, orthopedic, other - Social History Smoking Status: Never smoker Smokeless Tobacco Status: No Alcohol use: none Drug use: none - Family History Father Living Status: Cause of : History of CK D Hx Family Endocrine Disorder: Yes (kidney disease) Mother Living Status: Cause of : Aneurysmal rupture Hx Family Cardiac Disorders: Yes Internal Medicine - CN: Meds Atorvastatin [Lipitor] 40 mg PO HS 09/20/16 [History] Calcitriol 0.25 mcg PO DAILY 09/20/16 [History] Carvedilol [Coreg] 12.5 mg PO BID 09/20/16 [History] Hydralazine HCl 25 mg PO BID 09/20/16 [History] Losartan Potassium [Cozaar] 50 mg PO DAILY 09/20/16 [History] Potassium Chloride [Klor-Con M20] 20 meq PO DAILY 09/20/16 [History] Primidone [Mysoline] 50 mg PO HS 09/20/16 [History] Tamsulosin [Flomax] 0.4 mg PO DAILY 09/20/16 [History] Bumetanide 2 mg PO DAILY 12/07/16 [History] Docusate Sodium [Colace] 100 mg PO DAILY PRN 11/19/17 [History] Omeprazole [PriLOSEC] 40 mg PO DAILY 11/19/17 [History] 3 Allergy/AdvReac Type Severity Reaction Status Date / Time lisinopril AdvReac Swelling Verified 11/19/17 08:43 of Lip/Tongue/Throat Internal Medicine - CN: Exam - Constitutional Vitals: Temp Pulse Resp BP Pulse Ox 98.6 F 64 16 188/95 99 11/20/17 07:35 11/20/17 08:59 11/20/17 08:59 11/20/17 08:59 11/20/17 08:59 Internal Medicine - CN: Reslt - Labs CBC & Chem 7: 11/21/17 04:30 11/19/17 08:52 Labs: Short CBC 11/19/17 11/19/17 Range/Units 17:21 22:43 Hgb 13.5 13.6 (12.9-16.9) g/dL Hct 41.9 42.3 (37.5-50.1) % - ABG Interpretation ABG results: PT/INR, D-dimer PT 16.9 Seconds (9.4-12.1) H 11/19/17 08:52 Consult Discharge Plan - Plan Instructions: Chronic Hypertension (DC), Anemia (GEN) Additional Instructions: 1. Follow-up with your primary care provider in the next 3-5 days 2. Take all prescriptions as prescribed, any concerns or questions contact her primary care provider. 3. Return to the emergency department if: Recurrence of rectal bleeding, any other medical concerns or symptoms. - Do not take eliquis or aspirin Referrals: Florinda Shen CNP [Advanced Practice Nurse] - 11/25/17 10:00 am
[2017-11-20] MEDS: Bumetanide 1 MG TABLET PO SCH (10:22)
[2017-11-20] MEDS: amLODIPine 5 MG TABLET PO SCH (10:24)
[2017-11-20] MEDS: hydrALAZINE 25 MG TABLET PO SCH ×2 (10:25→20:30)
[2017-11-20 10:36] LABS: Hematocrit 40.7 % (37.5-50.1); Hemoglobin 13.1 g/dL (12.9-16.9)
--- NOTE | 2017-11-20 12:22 | Internal Med Progress Note ---
Date of Encounter: 11/20/17 Time of Encounter: 11:10 - Assessment and plan (1) GI bleed Current Visit: Yes Status: Acute Assessment and plan: Hb stable EGD and colonosocpy noted Hemodynamically stable Rpt CBC am Continue to hold ASA and Eliquis Qualifiers: GI bleed type/associated pathology: diverticulosis Qualified Code(s): K57.91 - Diverticulosis of intestine, part unspecified, without perforation or abscess with bleeding (2) CKD (chronic kidney disease) stage 3, GFR 30-59 ml/min Current Visit: Yes Status: Chronic Assessment and plan: renal function is at baseline (3) Hypertension Current Visit: Yes Status: Chronic Assessment and plan: Uncontrolled Increase NOrvasc to 10mg daily Continue Losartan, Hydralazine, tamsulosin Continue hydralazine IV prn Continue to monitor Qualifiers: Hypertension type: essential hypertension Qualified Code(s): I10 - Essential (primary) hypertension (4) History of thoracic aortic aneurysm repair Current Visit: Yes Status: Chronic Assessment and plan: chronic, stable (5) Diverticular hemorrhage Current Visit: Yes Status: Acute Assessment and plan: as in GIB Hb stable Continue to hold ASA/Eliquis (6) Atrial flutter Current Visit: Yes Status: Chronic Assessment and plan: chronic, stable, continue home meds Qualifiers: Qualified Code(s): I48.92 - Unspecified atrial flutter - Time Spent With Patient Total time spent is greater than 50% in coordination of care (as documented) at patient's floor/unit and/or counseling patient: - Subjective Interval history: Seen with spouse at bedside Admitted and being managed for bleeding per rectum, suspected to be diverticular Seen s/p EGD and colonoscopy-many diverticula found from significant ascending colon. Susceptibility was noted at the mid sigmoid colon from the diverticula, no cauterization done, polypectomy done. EGD showed erosive gastropathy which was biopsied. Hemoglobin this morning is 13. We will observe patient overnight and repeat hemoglobin in the morning. We will continue to hold aspirin and Eliquis and recommend follow-up with primary care physician for definitive anticoagulation. - Constitutional Vitals: Temp Pulse Resp BP Pulse Ox 98.5 F 73 18 174/90 99 11/20/17 09:20 11/20/17 09:20 11/20/17 09:20 11/20/17 09:20 11/20/17 09:20 General appearance: Present: A&O X 3, pleasant, no acute distress, answers questions appropriately - Head Head exam: Present: atraumatic, normocephalic - Eye Eye exam: Present: PERRL, conjuntiva pink, sclera anicteric Pupils: Present: PERRL - Neck Neck exam general surgery: Present: supple, trachea midline. Absent: lymphadenopathy - Respiratory Respiratory exam: Present: CTAB. Absent: accessory muscle use, rales, rhonchi, wheezes - Cardiovascular Cardiovascular exam: Present: RRR, +S1, +S2. Absent: diastolic murmur, gallop, rubs, systolic murmur - GI/Abdominal GI/Abdominal exam: Present: normal bowel sounds, soft, no peritoneal signs. Absent: distended, tenderness - Extremities Exam Extremities exam: Present: warm, radial pulses palpable and symmetrical. Absent : calf tenderness, cyanotic, pedal edema - Neurological Exam Neurological exam: Present: alert, CN II-XII intact, oriented X3, no focal deficits. Absent: pronater drift, facial droop, speech deficit - Skin Skin exam: Present: dry, intact Internal Medicine: Result - Labs CBC & Chem 7: 11/20/17 09:38 11/19/17 08:52 Labs: Short CBC 11/19/17 11/19/17 11/20/17 Range/Units 17:21 22:43 09:38 Hgb 13.5 13.6 13.1 (12.9-16.9) g/dL Hct 41.9 42.3 40.7 (37.5-50.1) % - ABG Interpretation ABG results: PT/INR, D-dimer PT 16.9 Seconds (9.4-12.1) H 11/19/17 08:52 Consult Discharge Plan - Plan Referrals: Adam Mayo Jr, MD [Primary Care Provider] -
[2017-11-20] MEDS: Acetaminophen 325 MG TABLET PO PRN (19:07)
[2017-11-20] MEDS: Primidone 50 MG TABLET PO SCH (20:30)
[2017-11-21 05:14] LABS: Basophils % 0.3 %; Eosinophils # 0.1 K/mcL (0.0-0.6); Eosinophils % 1.2 %; Hematocrit 37.5 % (37.5-50.1); Hemoglobin 12.1 g/dL (12.9-16.9); Immature Granulocytes % 0.5 % (0-4); Lymphocytes # 0.9 K/mcL (0.6-4.6); Lymphocytes % 11.9 %; Mean Corpuscular HGB Conc 32.3 g/dL (31.6-35.5); Mean Corpuscular Hemoglobin 27.3 pg (28.0-33.3); Mean Corpuscular Volume 84.5 fL (83.0-100.0); Monocytes # 0.7 K/mcL (0.0-1.3); Monocytes % 9.2 %; Neutrophils # 5.8 K/mcL (1.6-8.9); Platelet Count 138 K/mcL (140-400); Red Blood Count 4.44 M/mcL (4.19-5.50); Red Cell Distribution Width 15.8 % (11.5-14.5); Segmented Neutrophils % 76.9 %
[2017-11-21 06:38] VITALS: BP 133/69
[2017-11-21] MEDS: amLODIPine 5 MG TABLET PO SCH (08:04)
[2017-11-21] MEDS: Bumetanide 1 MG TABLET PO SCH (08:05)
[2017-11-21] MEDS: hydrALAZINE 25 MG TABLET PO SCH (08:06)
--- NOTE | 2017-11-21 09:45 | Discharge Summary ---
<Heber Urena - Last Filed: 11/21/17 13:47> Orders not resulted at time of discharge: Pending orders 11/20/17 09:01 Surgical Pathology [PTH] Routine 11/20/17 11:01 H. pylori Urease Culture [RM] Stat 11/21/17 04:30 Basic Metabolic Panel Routine Date of Encounter: 11/21/17 Time of Encounter: 08:00 - Discharge Diagnosis (1) Diverticular hemorrhage Priority: Primary Status: Acute (2) Atrial flutter Priority: Secondary Status: Chronic Qualifiers: Qualified Code(s): I48.92 - Unspecified atrial flutter (3) CKD (chronic kidney disease) stage 3, GFR 30-59 ml/min Priority: Secondary Status: Chronic (4) History of thoracic aortic aneurysm repair Priority: Secondary Status: Chronic (5) Hypertension Priority: Secondary Status: Chronic Qualifiers: Hypertension type: essential hypertension Qualified Code(s): I10 - Essential (primary) hypertension Hospital course: Mr. Michaels is a 77 year old man with significant pmh of DM, HTN, thoracic aneurysm post repair, atrial fibrillation on chronic anticoagulation, recent endoscopy with clipping of bleeding gastric ulcers who presented this am in the ER c/o BRBPR. His initial vitals demonstrated HTN, afebrile and normal pulse rate. Labs demonstrated Hgb 13.2 and stable stage III CKD. He was admitted and antiplatelet therapy was held. GI was consulted and he underwent with findings of duodenal diverticulum. and biopsies were collected for H.pylori evaluation. Colonoscopy demonstrated many diverticula in the sigmoid colon with bleeding from mid sigmoid. Three carpet like polyps were found in the ileocecal valve and removed. He remained stable with treatment of his chronic medical problems. He was seen and evaluated on 11/21/17 and determined stable for discharge without Eliquis or ASA. He will follow up with Dr. Saavedra in the outpatient setting for post op evaluation and anticoagulation recommendations. - Time Spent with Patient Total time spent providing and/or coordinating discharge services: - Discharge Medications Home Medications: Atorvastatin [Lipitor] 40 mg PO HS 09/20/16 [History] Calcitriol 0.25 mcg PO DAILY 09/20/16 [History] Carvedilol [Coreg] 12.5 mg PO BID 09/20/16 [History] Hydralazine HCl 25 mg PO BID 09/20/16 [History] Losartan Potassium [Cozaar] 50 mg PO DAILY 09/20/16 [History] Potassium Chloride [Klor-Con M20] 20 meq PO DAILY 09/20/16 [History] Primidone [Mysoline] 50 mg PO HS 09/20/16 [History] Tamsulosin [Flomax] 0.4 mg PO DAILY 09/20/16 [History] Bumetanide 2 mg PO DAILY 12/07/16 [History] Docusate Sodium [Colace] 100 mg PO DAILY PRN 11/19/17 [History] Omeprazole [PriLOSEC] 40 mg PO DAILY 11/19/17 [History] Allergies/Adverse Reactions: 3 Allergy/AdvReac Type Severity Reaction Status Date / Time lisinopril AdvReac Swelling Verified 11/19/17 08:43 of Lip/Tongue/Throat Date of admission: 11/19/17 13:18 Primary care physician: Adam Mayo Jr, MD Discharging clinician: Heber Urena Anticipated date of discharge: 11/21/17 - Constitutional Vitals: Temp Pulse Resp BP Pulse Ox 97.9 F 65 16 133/69 96 11/21/17 06:34 11/21/17 06:34 11/21/17 06:34 11/21/17 06:34 11/21/17 06:34 General appearance: Present: A&O X 3, pleasant, no acute distress, answers questions appropriately Exam: General: Patient alert, awake, oriented 3, interactive, in no acute distress HEENT: Normocephalic, atraumatic, pupils equal reactive to light, nasal cavity patent and open septum median position, oral mucosa moist, uvula midline, neck supple trachea midline no palpable lymphadenopathy, no thyromegaly. Chest: Symmetric bilateral correlating with respiratory effort, effort nonlabored. Cardiac: Regular rate and rhythm, grade 2/6 systolic ejection murmur, Radial pulses 2+ bilateral, posterior tibial and dorsal pedal pulses 2+ bilateral. Respiratory: Clear to auscultation all lung em Abdomen: Soft, nontender, positive bowel sounds, no palpable masses appreciated on examination Extremities: Symmetric bilateral, bilateral lower extremities without erythema or edema patient moving all 4 extremities spontaneously. Neurologic: No focal deficits appreciated on examination. Face symmetric, muscle strength symmetric bilateral upper and lower extremities. - Patient Status Disposition: Home, Self-Care Condition: Fair Overall status at discharge: patient is progressing back to baseline - Discharge Instructions Instructions: Chronic Hypertension (DC), Anemia (GEN) Follow Up With: Florinda Shen CNP [Advanced Practice Nurse] - 11/25/17 10:00 am Additional Instructions: 1. Follow-up with your primary care provider in the next 3-5 days 2. Take all prescriptions as prescribed, any concerns or questions contact her primary care provider. 3. Return to the emergency department if: Recurrence of rectal bleeding, any other medical concerns or symptoms. - Do not take eliquis or aspirin - Diet and Activity Activity: increase activity as tolerated Diet: advance to your usual diet <Mingo Forbes - Last Filed: 11/21/17 14:01> Orders not resulted at time of discharge: Pending orders 11/20/17 09:01 Surgical Pathology [PTH] Routine Date of Encounter: 11/21/17 - Discharge Diagnosis (1) GI bleed Status: Acute Qualifiers: GI bleed type/associated pathology: diverticulosis Qualified Code(s): K57.91 - Diverticulosis of intestine, part unspecified, without perforation or abscess with bleeding (2) CKD (chronic kidney disease) stage 3, GFR 30-59 ml/min Status: Chronic (3) Hypertension Status: Chronic Qualifiers: Hypertension type: essential hypertension Qualified Code(s): I10 - Essential (primary) hypertension (4) History of thoracic aortic aneurysm repair Status: Chronic (5) Diverticular hemorrhage Status: Acute (6) Atrial flutter Status: Chronic Qualifiers: Qualified Code(s): I48.92 - Unspecified atrial flutter Hospital course: Mr. Michaels is a 77 year old male - Time Spent with Patient Total time spent providing and/or coordinating discharge services: Date of admission: 11/19/17 13:18 Primary care physician: Adam Mayo Jr, MD - Constitutional Vitals: Temp Pulse Resp BP Pulse Ox 97.9 F 65 16 133/69 96 11/21/17 06:34 11/21/17 06:34 11/21/17 06:34 11/21/17 06:34 11/21/17 06:34 - Attending Attestation Seen and examined independently at the bedside Hemodynamically stable, Hb stable, no new complains Exam [email or web address] Discharge home without ASA/Eliquis, follow up with PCP Rest as in the resident physician's documentation
[2017-11-21 13:04] LABS: Calcium 9.3 mg/dL (8.6-10.3); Potassium 3.6 mEq/L (3.5-5.1)
--- NOTE | 2017-11-23 00:37 | Electrocardiograph Report ---
[address] [address] Test Date: 2017-11-19 Pat Name: Elliot Michaels Department: 102 Room: 3A21 Gender: M Manufacturing Quality Technician: Lorenzo : 1940 Requested By: Yon Hare Order Number: [id number] Reading MD: Kallie Storey Measurements Intervals [place] Rate: 53 P: MD: 0 QRS: -39 QRSD: 102 T: 120 QT: 448 QTc: 431 Interpretive Statements ATRIAL FIBRILLATION WITH SLOW VENTRICULAR RESPONSE MARKED LEFT AXIS DEVIATION [QRS AXIS < -30] LEFT VENTRICULAR HYPERTROPHY AND ST-T CHANGE [VOLTAGE CRITERIA PLUS ST/T ABNORMALITY] Electronically Signed On 11-23-2017 0:35:57 EDT by Kallie Storey
== END 2017-11-21 15:18 | disposition home or self-care (01) ==
LOC: EMEROO 08:37 → 3ANU 13:18 → INTOOBSV 13:18 → 3ANU 14:00
PROVIDERS: ADMIT Internal Medicine; ATTEND Internal Medicine
PROC: ENDOEBX (2017-11-20 08:30)

== ENCOUNTER 2020-04-08 17:15 | Observation (INO) ==
[2020-04-08 18:26] LABS: Basophils % 0.6 %; Eosinophils # 0.1 K/mcL (0.0-0.6); Eosinophils % 2.3 %; Hematocrit 36.7 % (37.5-50.1); Hemoglobin 11.4 g/dL (12.9-16.9); Immature Granulocytes % 0.3 % (0-4); Lymphocytes % 30.2 %; Mean Corpuscular HGB Conc 31.1 g/dL (31.6-35.5); Mean Corpuscular Hemoglobin 27.1 pg (28.0-33.3); Mean Corpuscular Volume 87.4 fL (83.0-100.0); Monocytes # 0.9 K/mcL (0.0-1.3); Monocytes % 25.2 %; Neutrophils # 1.4 K/mcL (1.6-8.9); Platelet Count 149 K/mcL (140-400); Red Cell Distribution Width 16.1 % (11.5-14.5); Segmented Neutrophils % 41.4 %; White Blood Count 3.4 K/mcL (4.3-11.1)
[2020-04-08 18:27] LABS: INR 1.2; Platelet Estimate Normal (Normal); Prothrombin Time 13.7 Seconds (9.4-12.1)
[2020-04-08 18:30] LABS: Activated Partial Thrombo Time 42.7 Seconds (26.0-36.0)
[2020-04-08 18:40] LABS: Albumin/Globulin Ratio 1.7 (1.1-2.2); Bilirubin,Total 0.8 mg/dL (0.3-1.0); Globulin 2.4 g/dL (2.4-3.5); Total Protein 6.4 g/dL (6.4-8.9)
[2020-04-08] MEDS ORDERED: Isovue-370 500 ML BOTTLE PO ONE (18:57)
[2020-04-08] MEDS ORDERED: Azithromycin 500 MG in 0.9 % Sodium Chloride 250 ML IVPB ONE (19:28)
[2020-04-08] MEDS ORDERED: Dexamethasone 4 MG/ML VIAL IVP STA (19:28)
[2020-04-08] MEDS ORDERED: cefTRIAXone 1,000 MG in Water for inj. (sterile) 10 ML IVP ONE (19:28)
[2020-04-08 19:38] LABS: Adenovirus Not Detected (Not Detect); Bordetella Pertussis Not Detected (Not Detect); Chlamydophila pneumoniae Not Detected (Not Detect); Coronavirus 229E Not Detected (Not Detect); Coronavirus HKU1 Not Detected (Not Detect); Coronavirus NL63 Not Detected (Not Detect); Coronavirus OC43 Not Detected (Not Detect); Human Metapneumovirus Not Detected (Not Detect); Human Rhinovirus/Enterovirus Not Detected (Not Detect); Influenza A Subtype 2009 H1 Not Detected (Not Detect); Influenza B Not Detected (Not Detect); Mycoplasma pneumoniae Not Detected (Not Detect); Parainfluenza Virus 1 Not Detected (Not Detect); Parainfluenza Virus 2 Not Detected (Not Detect); Parainfluenza Virus 3 Not Detected (Not Detect); Parainfluenza Virus 4 Not Detected (Not Detect); Respiratory Syncytial Virus Not Detected (Not Detect)
[2020-04-08] MEDS ORDERED: Azithromycin 500 MG VIAL ONE (20:35)
[2020-04-08] MEDS ORDERED: 0.9 % Sodium Chloride 250 ML ONE (20:37)
[2020-04-08] MEDS ORDERED: Acetaminophen 325 MG TABLET PO PRN (21:48)
[2020-04-08] MEDS ORDERED: Naloxone 0.4 MG/ML INJ IVP PRN (21:48)
[2020-04-08] MEDS ORDERED: Ondansetron 4 MG/2 ML VIAL IVP PRN (21:48)
[2020-04-08] MEDS ORDERED: *HR* Dextrose 50 % in Water (Vial) 50 ML VIAL IVP PRN (21:51)
[2020-04-08] MEDS ORDERED: Dextrose Gel 15 GM/37.5 ML TUBE PO PRN ×2 (21:51)
[2020-04-08] MEDS ORDERED: D5% in Water 1,000 ML IVC PRN (21:51)
[2020-04-08] MEDS: Insulin LISPRO 300 UNITS/3 ML VIAL SQ SCH (22:00)
[2020-04-09 06:11] LABS: Basophils % 0.5 %
[2020-04-09 06:12] LABS: Hematocrit 37.5 % (37.5-50.1); Hemoglobin 11.8 g/dL (12.9-16.9); Lymphocytes % 29.2 %; Mean Corpuscular HGB Conc 31.5 g/dL (31.6-35.5); Mean Corpuscular Hemoglobin 27.7 pg (28.0-33.3); Mean Platelet Volume 11.8 fL (9.4-12.4); Monocytes # 0.1 K/mcL (0.0-1.3); Monocytes % 6.5 %; Neutrophils # 1.2 K/mcL (1.6-8.9); Platelet Count 146 K/mcL (140-400); Red Blood Count 4.26 M/mcL (4.19-5.50); Red Cell Distribution Width 15.8 % (11.5-14.5); Segmented Neutrophils % 63.8 %; White Blood Count 1.9 K/mcL (4.3-11.1)
[2020-04-09 06:25] LABS: INR 1.3; Prothrombin Time 14.2 Seconds (9.4-12.1)
[2020-04-09 06:26] LABS: Lymphocytes # 0.6 K/mcL (0.6-4.6)
[2020-04-09 06:27] LABS: Platelet Estimate Normal (Normal)
[2020-04-09 06:28] LABS: Magnesium 2.1 mg/dL (1.6-2.6); Potassium 4.2 mEq/L (3.5-5.1)
[2020-04-09 06:43] LABS: Thyroid Stimulating Hormone 0.712 mcIU/mL (0.340-5.600)
[2020-04-09 06:55] LABS: Folate > 22.3 ng/mL (3.0-16.0); Vitamin B12 457 pg/mL (250-1100)
[2020-04-09] MEDS: Insulin LISPRO 300 UNITS/3 ML VIAL SQ SCH ×2 (08:06→11:31)
[2020-04-09 08:29] VITALS: BP 162/90
[2020-04-09 08:56] LABS: Bilirubin,Urine Negative (Negative); Blood,Urine Negative (Negative); Clarity,Urine Clear (Clear); Color,Urine Yellow (Yellow); Glucose,Urine (UA) Normal (Normal); Ketones,Urine Trace mg/dL (Negative); Leukocyte Esterase,Urine Negative (Negative); Nitrite,Urine Negative (Negative); PH,Urine 6.5 pH Units (5.0-8.0); Protein,Urine 200 mg/dL (Neg-Trace); RBC,Urine 0-3 per hpf (0-3); Specific Gravity,Urine 1.018 (1.010-1.025); Squamous Epithelial Cell,Urine Few per hpf (None-Few); Urobilinogen,Urine Normal (Normal); WBC,Urine 0-3 per hpf (0-3)
[2020-04-09] MEDS ORDERED: Azithromycin 500 MG in 0.9 % Sodium Chloride 250 ML IVPB SCH (09:00)
[2020-04-09] MEDS ORDERED: Dexamethasone 4 MG/ML VIAL IVP SCH (09:00)
== END 2020-04-09 13:02 | disposition home or self-care (01) ==
LOC: 2NENU 17:15 → EMEROOARM 17:15 → SUATTDRO 20:21 → 2NENU 20:54
PROVIDERS: ADMIT Internal Medicine; ATTEND Family Medicine

== ENCOUNTER 2020-04-18 17:53 | Inpatient (IN) ==
[2020-04-18 18:47] LABS: Basophils % 0.2 %; Eosinophils % 0.2 %; Hematocrit 38.5 % (37.5-50.1); Hemoglobin 12.1 g/dL (12.9-16.9); Immature Granulocytes % 0.2 % (0-4); Lymphocytes # 0.4 K/mcL (0.6-4.6); Lymphocytes % 9.1 %; Mean Corpuscular HGB Conc 31.4 g/dL (31.6-35.5); Mean Corpuscular Hemoglobin 26.7 pg (28.0-33.3); Mean Platelet Volume 12.3 fL (9.4-12.4); Monocytes # 0.4 K/mcL (0.0-1.3); Monocytes % 9.1 %; Neutrophils # 3.8 K/mcL (1.6-8.9); Platelet Count 139 K/mcL (140-400); Red Blood Count 4.53 M/mcL (4.19-5.50); Red Cell Distribution Width 16.4 % (11.5-14.5); Segmented Neutrophils % 81.2 %; White Blood Count 4.7 K/mcL (4.3-11.1)
[2020-04-18 18:48] LABS: VBG HCO3 20 mEq/L (21-27); VBG PCO2 35 mmHg (41-51); VBG PH 7.37 pH Units (7.32-7.42); VBG PO2 58 mmHg (25-50)
[2020-04-18 18:51] LABS: INR 1.4; Prothrombin Time 16.3 Seconds (9.4-12.1)
[2020-04-18 18:53] LABS: Activated Partial Thrombo Time 37.2 Seconds (26.0-36.0)
[2020-04-18 19:06] LABS: Albumin 3.9 g/dL (3.5-5.7); Albumin/Globulin Ratio 1.4 (1.1-2.2); Bilirubin,Direct 0.6 mg/dL (0.0-0.2); Bilirubin,Indirect 0.9 mg/dL (0.0-1.0); Bilirubin,Total 1.5 mg/dL (0.3-1.0); Calcium 8.9 mg/dL (8.6-10.3); Globulin 2.8 g/dL (2.4-3.5); Potassium 4.2 mEq/L (3.5-5.1); Total Protein 6.7 g/dL (6.4-8.9)
[2020-04-18] MEDS ORDERED: Dexamethasone 4 MG/ML VIAL IVP ONE (19:35)
[2020-04-18] MEDS ORDERED: 0.9 % Sodium Chloride 1,000 ML IVC ONE (19:45)
[2020-04-18] MEDS ORDERED: *HR* Heparin 5,000 UNIT/ML VIAL IVP ONE (19:46)
[2020-04-18] MEDS ORDERED: *HR* Heparin 5,000 UNIT/ML VIAL IVP PRN ×2 (19:46)
[2020-04-18] MEDS ORDERED: Heparin 25,000UNIT/250ML 1/2NS 25,000 UNIT/250 ML IV.SOLN IVC SCH (20:00)
[2020-04-18 20:12] LABS: Troponin I 0.06 ng/mL (< 0.04)
[2020-04-18] MEDS ORDERED: Naloxone 0.4 MG/ML INJ IVP PRN (20:12)
[2020-04-18] MEDS ORDERED: Ondansetron 4 MG/2 ML VIAL IVP PRN (20:12)
[2020-04-18 20:48] LABS: Heparin anti-factor XA UFH < 0.04 IU/mL (0.30-0.70)
[2020-04-18 20:49] LABS: INR 1.5; Prothrombin Time 16.6 Seconds (9.4-12.1)
[2020-04-18] MEDS: Budesonide/Formoterol 160/4.5 1 PUFF INH IH SCH (23:15)
[2020-04-18] MEDS: *HR* OxyCODONE/APAP 5/325 TABLET PO PRN (23:44)
[2020-04-18] MEDS: Primidone 50 MG TABLET PO SCH (23:45)
[2020-04-18] MEDS: Gabapentin 300 MG CAPSULE PO SCH (23:45)
[2020-04-18] MEDS: carvediloL 6.25 MG TABLET PO SCH (23:45)
[2020-04-18] MEDS: hydrALAZINE 25 MG TABLET PO SCH (23:46)
[2020-04-19 00:47] LABS: Hematocrit 34.9 % (37.5-50.1); Hemoglobin 11.2 g/dL (12.9-16.9); Lymphocytes # 0.3 K/mcL (0.6-4.6); Lymphocytes % 9.2 %; Mean Corpuscular HGB Conc 32.1 g/dL (31.6-35.5); Mean Corpuscular Hemoglobin 27.3 pg (28.0-33.3); Mean Corpuscular Volume 84.9 fL (83.0-100.0); Mean Platelet Volume 11.1 fL (9.4-12.4); Monocytes # 0.2 K/mcL (0.0-1.3); Monocytes % 5.6 %; Neutrophils # 2.6 K/mcL (1.6-8.9); Platelet Count 105 K/mcL (140-400); Red Blood Count 4.11 M/mcL (4.19-5.50); Red Cell Distribution Width 16.2 % (11.5-14.5); Segmented Neutrophils % 85.2 %
[2020-04-19 01:01] LABS: Albumin 3.7 g/dL (3.5-5.7); Albumin/Globulin Ratio 1.4 (1.1-2.2); Bilirubin,Total 1.4 mg/dL (0.3-1.0); Calcium 8.6 mg/dL (8.6-10.3); Globulin 2.7 g/dL (2.4-3.5); Magnesium 2.2 mg/dL (1.6-2.6); Phosphorous 3.5 mg/dL (2.7-4.5); Potassium 4.1 mEq/L (3.5-5.1); Total Protein 6.4 g/dL (6.4-8.9)
[2020-04-19 01:02] LABS: C-Reactive Protein 60 mg/L (Less than 10); Lactate Dehydrogenase 288 Units/L (140-271)
[2020-04-19 01:16] LABS: INR 1.4; Prothrombin Time 15.6 Seconds (9.4-12.1)
[2020-04-19 01:46] LABS: Hepatitis B Surface Antigen Nonreactive (Nonreactive)
[2020-04-19 02:15] LABS: Hepatitis B Core IgM Nonreactive (Nonreactive); Hepatitis C Virus Antibody Nonreactive (Nonreactive)
[2020-04-19 02:17] LABS: Hepatitis A Antibody IgM Nonreactive (Nonreactive)
[2020-04-19] MEDS ORDERED: *HR* Enoxaparin 40 MG/0.4 ML SYRINGE SQ SCH (06:00)
[2020-04-19] MEDS: Budesonide/Formoterol 160/4.5 1 PUFF INH IH SCH ×2 (07:33→19:25)
[2020-04-19] MEDS: carvediloL 6.25 MG TABLET PO SCH (09:01)
[2020-04-19] MEDS: Bumetanide 1 MG/4 ML VIAL IVP SCH ×2 (09:02→16:09)
[2020-04-19] MEDS: hydrALAZINE 25 MG TABLET PO SCH ×3 (09:02→21:46)
[2020-04-19] MEDS: calcitrioL 0.25 MCG CAPSULE PO SCH (09:02)
[2020-04-19] MEDS: Doxycycline 100 MG CAPSULE PO SCH ×2 (09:02→21:46)
[2020-04-19] MEDS ORDERED: Magnesium Sulfate 1 GM/102 ML PIGGYBACK IVPB ONE (15:50)
[2020-04-19] MEDS: *HR* OxyCODONE/APAP 5/325 TABLET PO PRN (21:46)
[2020-04-19] MEDS: Primidone 50 MG TABLET PO SCH (21:47)
[2020-04-19] MEDS: Gabapentin 300 MG CAPSULE PO SCH (21:47)
[2020-04-20] MEDS: *HR* Enoxaparin 30 MG/0.3 ML SYRINGE SQ SCH (06:14)
[2020-04-20 07:34] LABS: Calcium 8.2 mg/dL (8.6-10.3); Magnesium 2.2 mg/dL (1.6-2.6); Phosphorous 3.8 mg/dL (2.7-4.5); Potassium 4.2 mEq/L (3.5-5.1)
[2020-04-20 07:56] LABS: Hematocrit 34.3 % (37.5-50.1); Hemoglobin 10.7 g/dL (12.9-16.9); Immature Granulocytes % 0.2 % (0-4); Lymphocytes # 0.3 K/mcL (0.6-4.6); Lymphocytes % 5.9 %; Mean Corpuscular HGB Conc 31.2 g/dL (31.6-35.5); Mean Corpuscular Hemoglobin 26.4 pg (28.0-33.3); Mean Corpuscular Volume 84.7 fL (83.0-100.0); Mean Platelet Volume 11.8 fL (9.4-12.4); Monocytes # 0.3 K/mcL (0.0-1.3); Monocytes % 6.4 %; Neutrophils # 4.5 K/mcL (1.6-8.9); Platelet Count 122 K/mcL (140-400); Red Blood Count 4.05 M/mcL (4.19-5.50); Red Cell Distribution Width 16.2 % (11.5-14.5); Segmented Neutrophils % 87.5 %; White Blood Count 5.1 K/mcL (4.3-11.1)
[2020-04-20] MEDS: Bumetanide 1 MG/4 ML VIAL IVP SCH ×2 (08:10→17:37)
[2020-04-20] MEDS: calcitrioL 0.25 MCG CAPSULE PO SCH (08:10)
[2020-04-20] MEDS: Doxycycline 100 MG CAPSULE PO SCH ×2 (08:10→19:46)
[2020-04-20] MEDS: hydrALAZINE 25 MG TABLET PO SCH ×3 (08:10→19:46)
[2020-04-20] MEDS: Budesonide/Formoterol 160/4.5 1 PUFF INH IH SCH ×2 (10:46→20:00)
[2020-04-20] MEDS: Primidone 50 MG TABLET PO SCH (19:46)
[2020-04-20] MEDS: Gabapentin 300 MG CAPSULE PO SCH (19:47)
[2020-04-20] MEDS: *HR* OxyCODONE/APAP 10/325 TABLET PO PRN (20:07)
[2020-04-21] MEDS: *HR* Enoxaparin 30 MG/0.3 ML SYRINGE SQ SCH (06:21)
[2020-04-21] MEDS: Budesonide/Formoterol 160/4.5 1 PUFF INH IH SCH ×2 (07:36→20:01)
[2020-04-21] MEDS: hydrALAZINE 25 MG TABLET PO SCH ×3 (09:10→21:19)
[2020-04-21] MEDS: calcitrioL 0.25 MCG CAPSULE PO SCH (09:10)
[2020-04-21] MEDS: Bumetanide 1 MG/4 ML VIAL IVP SCH ×2 (09:10→16:06)
[2020-04-21] MEDS: Dexamethasone 4 MG/ML VIAL IVP SCH (09:10)
[2020-04-21] MEDS: Doxycycline 100 MG CAPSULE PO SCH ×2 (09:10→21:18)
[2020-04-21] MEDS: *HR* OxyCODONE/APAP 5/325 TABLET PO PRN (09:16)
[2020-04-21 10:08] LABS: Eosinophils % 0.2 %; Hematocrit 35.1 % (37.5-50.1); Hemoglobin 11.1 g/dL (12.9-16.9); Immature Granulocytes % 0.2 % (0-4); Lymphocytes # 0.3 K/mcL (0.6-4.6); Lymphocytes % 6.7 %; Mean Corpuscular HGB Conc 31.6 g/dL (31.6-35.5); Mean Corpuscular Hemoglobin 26.6 pg (28.0-33.3); Mean Platelet Volume 11.9 fL (9.4-12.4); Monocytes # 0.3 K/mcL (0.0-1.3); Monocytes % 5.5 %; Neutrophils # 4.3 K/mcL (1.6-8.9); Platelet Count 123 K/mcL (140-400); Red Blood Count 4.18 M/mcL (4.19-5.50); Red Cell Distribution Width 16.5 % (11.5-14.5); Segmented Neutrophils % 87.4 %
[2020-04-21 10:25] LABS: Lactate Dehydrogenase 243 Units/L (140-271)
[2020-04-21 10:44] LABS: Ferritin 250 ng/mL (20-250)
[2020-04-21 12:02] LABS: Albumin 3.5 g/dL (3.5-5.7); Albumin/Globulin Ratio 1.4 (1.1-2.2); Bilirubin,Direct 0.2 mg/dL (0.0-0.2); Bilirubin,Indirect 0.7 mg/dL (0.0-1.0); Bilirubin,Total 0.9 mg/dL (0.3-1.0); Calcium 8.1 mg/dL (8.6-10.3); Globulin 2.5 g/dL (2.4-3.5); Magnesium 1.9 mg/dL (1.6-2.6); Phosphorous 2.1 mg/dL (2.7-4.5)
[2020-04-21 17:06] LABS: Fibrinogen 314 mg/dL (169-393)
[2020-04-21 18:08] LABS: D-Dimer 5798 ng/mLFEU (0-500)
[2020-04-21] MEDS: *HR* OxyCODONE/APAP 10/325 TABLET PO PRN (21:18)
[2020-04-21] MEDS: Primidone 50 MG TABLET PO SCH (21:19)
[2020-04-21] MEDS: Gabapentin 300 MG CAPSULE PO SCH (21:19)
[2020-04-22] MEDS: *HR* Enoxaparin 30 MG/0.3 ML SYRINGE SQ SCH (05:05)
[2020-04-22] MEDS: Budesonide/Formoterol 160/4.5 1 PUFF INH IH SCH (07:15)
[2020-04-22] MEDS: Doxycycline 100 MG CAPSULE PO SCH (09:07)
[2020-04-22] MEDS: calcitrioL 0.25 MCG CAPSULE PO SCH (09:08)
[2020-04-22] MEDS: hydrALAZINE 25 MG TABLET PO SCH (09:08)
[2020-04-22] MEDS: Dexamethasone 4 MG/ML VIAL IVP SCH (09:08)
[2020-04-22] MEDS: Bumetanide 1 MG/4 ML VIAL IVP SCH (09:09)
[2020-04-22 09:11] LABS: Calcium 8.5 mg/dL (8.6-10.3); Potassium 3.9 mEq/L (3.5-5.1)
[2020-04-22 09:38] VITALS: BP 112/61
[2020-04-22 13:27] LABS: Adenovirus Not Detected (Not Detect); Bordetella Pertussis Not Detected (Not Detect); Chlamydophila pneumoniae Not Detected (Not Detect); Coronavirus 229E Not Detected (Not Detect); Coronavirus HKU1 Not Detected (Not Detect); Coronavirus NL63 Not Detected (Not Detect); Coronavirus OC43 Not Detected (Not Detect); Human Metapneumovirus Not Detected (Not Detect); Human Rhinovirus/Enterovirus Not Detected (Not Detect); Influenza A Subtype 2009 H1 Not Detected (Not Detect); Influenza B Not Detected (Not Detect); Mycoplasma pneumoniae Not Detected (Not Detect); Parainfluenza Virus 1 Not Detected (Not Detect); Parainfluenza Virus 2 Not Detected (Not Detect); Parainfluenza Virus 3 Not Detected (Not Detect); Parainfluenza Virus 4 Not Detected (Not Detect); Respiratory Syncytial Virus Not Detected (Not Detect); SARS-CoV-2 DETECTED (Not Detect)
== END 2020-04-22 15:10 | disposition home health service (06) | DRG 177 ==
LOC: 2NENU 17:53 → EMEROOARM 17:53 → SUATTDRO 20:40 → 2NENU 22:00
PROVIDERS: ADMIT Family Medicine; ATTEND Internal Medicine

== ENCOUNTER 2020-05-09 17:44 | Inpatient (IN) ==
[2020-05-09 19:01] LABS: Basophils % 0.2 %; Eosinophils # 0.2 K/mcL (0.0-0.6); Eosinophils % 3.6 %; Hematocrit 37.1 % (37.5-50.1); Hemoglobin 11.5 g/dL (12.9-16.9); Immature Granulocytes % 0.4 % (0-4); Lymphocytes # 0.9 K/mcL (0.6-4.6); Lymphocytes % 16.8 %; Mean Corpuscular Hemoglobin 26.7 pg (28.0-33.3); Mean Corpuscular Volume 86.3 fL (83.0-100.0); Mean Platelet Volume 11.3 fL (9.4-12.4); Monocytes # 0.5 K/mcL (0.0-1.3); Monocytes % 9.3 %; Neutrophils # 3.5 K/mcL (1.6-8.9); Platelet Count 111 K/mcL (140-400); Red Cell Distribution Width 18.6 % (11.5-14.5); Segmented Neutrophils % 69.7 %; White Blood Count 5.1 K/mcL (4.3-11.1)
[2020-05-09 19:15] LABS: INR 1.4; Prothrombin Time 16.1 Seconds (9.4-12.1)
[2020-05-09 19:30] LABS: Troponin I 0.04 ng/mL (< 0.04)
[2020-05-09 19:36] LABS: Calcium 9.5 mg/dL (8.6-10.3); Potassium 3.8 mEq/L (3.5-5.1)
[2020-05-09] MEDS ORDERED: Furosemide 40 MG/4 ML VIAL IVP ONE (19:50)
[2020-05-09 21:23] LABS: Adenovirus Not Detected (Not Detect); Bordetella Pertussis Not Detected (Not Detect); Chlamydophila pneumoniae Not Detected (Not Detect); Coronavirus 229E Not Detected (Not Detect); Coronavirus HKU1 Not Detected (Not Detect); Coronavirus NL63 Not Detected (Not Detect); Coronavirus OC43 Not Detected (Not Detect); Human Metapneumovirus Not Detected (Not Detect); Human Rhinovirus/Enterovirus Not Detected (Not Detect); Influenza A Subtype 2009 H1 Not Detected (Not Detect); Influenza B Not Detected (Not Detect); Mycoplasma pneumoniae Not Detected (Not Detect); Parainfluenza Virus 1 Not Detected (Not Detect); Parainfluenza Virus 2 Not Detected (Not Detect); Parainfluenza Virus 3 Not Detected (Not Detect); Parainfluenza Virus 4 Not Detected (Not Detect); Respiratory Syncytial Virus Not Detected (Not Detect); SARS-CoV-2 Not Detected (Not Detect)
[2020-05-09] MEDS ORDERED: *HR* Promethazine 25 MG/ML VIAL IVP PRN (21:36)
[2020-05-09] MEDS ORDERED: Naloxone 0.4 MG/ML INJ IVP PRN (21:36)
[2020-05-09] MEDS ORDERED: Acetaminophen 325 MG TABLET PO PRN (21:36)
[2020-05-10 00:05] LABS: Bilirubin,Urine Negative (Negative); Blood,Urine Small (Negative); Clarity,Urine Clear (Clear); Color,Urine Colorless (Yellow); Glucose,Urine (UA) Normal (Normal); Ketones,Urine Negative (Negative); Leukocyte Esterase,Urine Negative (Negative); Mucus,Urine Few per lpf (None-Few); Nitrite,Urine Negative (Negative); Protein,Urine Trace mg/dL (Neg-Trace); RBC,Urine 50-100 per hpf (0-3); Specific Gravity,Urine 1.007 (1.010-1.025); Squamous Epithelial Cell,Urine Few per hpf (None-Few); Urobilinogen,Urine Normal (Normal); WBC,Urine 0-3 per hpf (0-3)
[2020-05-10 01:43] LABS: Immature Granulocytes % 0.2 % (0-4)
[2020-05-10 01:46] LABS: Basophils % 0.2 %; Eosinophils # 0.2 K/mcL (0.0-0.6); Eosinophils % 4.4 %; Hematocrit 33.3 % (37.5-50.1); Hemoglobin 10.3 g/dL (12.9-16.9); Immature Platelets 3.9 % (1.1-6.1); Lymphocytes # 0.8 K/mcL (0.6-4.6); Lymphocytes % 14.9 %; Mean Corpuscular HGB Conc 30.9 g/dL (31.6-35.5); Mean Corpuscular Hemoglobin 26.4 pg (28.0-33.3); Mean Corpuscular Volume 85.4 fL (83.0-100.0); Mean Platelet Volume 9.6 fL (9.4-12.4); Monocytes # 0.5 K/mcL (0.0-1.3); Monocytes % 8.9 %; Neutrophils # 3.6 K/mcL (1.6-8.9); Red Cell Distribution Width 18.6 % (11.5-14.5); Segmented Neutrophils % 71.4 %
[2020-05-10 01:48] LABS: Platelet Count 85 K/mcL (140-400)
[2020-05-10 01:52] LABS: INR 1.5
[2020-05-10 01:55] LABS: Albumin 3.6 g/dL (3.5-5.7); Albumin/Globulin Ratio 1.3 (1.1-2.2); Bilirubin,Total 1.8 mg/dL (0.3-1.0); Calcium 9.1 mg/dL (8.6-10.3); Chol/HDL Ratio 2.1 (0-4.9); Globulin 2.7 g/dL (2.4-3.5); Phosphorous 3.7 mg/dL (2.7-4.5); Potassium 3.8 mEq/L (3.5-5.1); Total Protein 6.3 g/dL (6.4-8.9)
[2020-05-10] MEDS ORDERED: Furosemide 20 MG/2 ML VIAL IVP ONE ×2 (03:14→13:53)
[2020-05-10] MEDS: Budesonide/Formoterol 160/4.5 1 PUFF INH IH SCH ×2 (07:59→21:27)
[2020-05-10] MEDS: carvediloL 6.25 MG TABLET PO SCH ×2 (09:57→18:19)
[2020-05-10] MEDS: Primidone 50 MG TABLET PO SCH (22:23)
[2020-05-10] MEDS: Gabapentin 300 MG CAPSULE PO SCH (22:24)
[2020-05-11 03:13] LABS: Immature Granulocytes % 0.2 % (0-4)
[2020-05-11 03:15] LABS: Basophils % 0.2 %; Eosinophils # 0.2 K/mcL (0.0-0.6); Eosinophils % 4.3 %; Hemoglobin 9.8 g/dL (12.9-16.9); Immature Platelets 4.2 % (1.1-6.1); Lymphocytes # 0.6 K/mcL (0.6-4.6); Lymphocytes % 14.1 %; Mean Corpuscular HGB Conc 31.6 g/dL (31.6-35.5); Mean Corpuscular Hemoglobin 27.1 pg (28.0-33.3); Mean Corpuscular Volume 85.9 fL (83.0-100.0); Mean Platelet Volume 11.3 fL (9.4-12.4); Monocytes # 0.5 K/mcL (0.0-1.3); Monocytes % 10.1 %; Neutrophils # 3.2 K/mcL (1.6-8.9); Red Blood Count 3.61 M/mcL (4.19-5.50); Red Cell Distribution Width 18.3 % (11.5-14.5); Segmented Neutrophils % 71.1 %; White Blood Count 4.5 K/mcL (4.3-11.1)
[2020-05-11 03:32] LABS: Calcium 8.4 mg/dL (8.6-10.3); Potassium 3.5 mEq/L (3.5-5.1)
[2020-05-11 03:59] LABS: Platelet Count 84 K/mcL (140-400)
[2020-05-11 04:00] LABS: Folate > 22.3 ng/mL (3.0-16.0); Vitamin B12 476 pg/mL (250-1100)
[2020-05-11] MEDS: Budesonide/Formoterol 160/4.5 1 PUFF INH IH SCH ×2 (07:53→21:41)
[2020-05-11] MEDS: carvediloL 6.25 MG TABLET PO SCH ×2 (09:03→16:53)
[2020-05-11] MEDS ORDERED: Furosemide 40 MG/4 ML VIAL IVP ONE (09:46)
[2020-05-11] MEDS: Gabapentin 300 MG CAPSULE PO SCH (19:47)
[2020-05-11] MEDS: Primidone 50 MG TABLET PO SCH (19:47)
[2020-05-12 06:31] LABS: Basophils % 0.2 %; Eosinophils # 0.3 K/mcL (0.0-0.6); Eosinophils % 6.3 %; Hemoglobin 9.6 g/dL (12.9-16.9); Immature Granulocytes % 0.2 % (0-4); Lymphocytes # 0.7 K/mcL (0.6-4.6); Lymphocytes % 16.3 %; Mean Corpuscular Hemoglobin 26.6 pg (28.0-33.3); Mean Corpuscular Volume 85.9 fL (83.0-100.0); Mean Platelet Volume 12.2 fL (9.4-12.4); Monocytes # 0.4 K/mcL (0.0-1.3); Monocytes % 9.8 %; Neutrophils # 2.9 K/mcL (1.6-8.9); Platelet Count 114 K/mcL (140-400); Red Blood Count 3.61 M/mcL (4.19-5.50); Red Cell Distribution Width 18.3 % (11.5-14.5); Segmented Neutrophils % 67.2 %; White Blood Count 4.3 K/mcL (4.3-11.1)
[2020-05-12 06:54] LABS: Calcium 8.4 mg/dL (8.6-10.3); Potassium 3.7 mEq/L (3.5-5.1)
[2020-05-12] MEDS: Budesonide/Formoterol 160/4.5 1 PUFF INH IH SCH ×2 (07:53→19:44)
[2020-05-12] MEDS: carvediloL 6.25 MG TABLET PO SCH ×2 (08:36→18:11)
[2020-05-12] MEDS ORDERED: 0.9 % Sodium Chloride 2,000 ML ONE (14:40)
[2020-05-12] MEDS ORDERED: *HR* Heparin 10,000 UNIT/10 ML VIAL ONE (14:41)
[2020-05-12] MEDS ORDERED: Nitroglycerin 1,000 MCG/10 ML VIAL IV ONE (14:41)
[2020-05-12] MEDS ORDERED: ISOVUE-370 200 ML INFUS..BTL ONE (14:41)
[2020-05-12] MEDS ORDERED: Heparin 1,000 UNITS/500 mL 500 ML ONE (14:41)
[2020-05-12] MEDS ORDERED: *HR* Midazolam HCl 2 MG/2 ML VIAL ONE (16:36)
[2020-05-12] MEDS ORDERED: *HR* FentaNYL (PF) 100 MCG/2 ML VIAL ONE (16:36)
[2020-05-12] MEDS ORDERED: 0.9 % Sodium Chloride 500 ML IVC SCH (17:45)
[2020-05-12] MEDS: Primidone 50 MG TABLET PO SCH (20:10)
[2020-05-12] MEDS: Gabapentin 300 MG CAPSULE PO SCH (20:11)
[2020-05-13 06:40] LABS: Basophils % 0.6 %; Eosinophils # 0.2 K/mcL (0.0-0.6); Eosinophils % 6.6 %; Hematocrit 31.8 % (37.5-50.1); Hemoglobin 9.7 g/dL (12.9-16.9); Lymphocytes # 0.5 K/mcL (0.6-4.6); Lymphocytes % 16.6 %; Mean Corpuscular HGB Conc 30.5 g/dL (31.6-35.5); Mean Corpuscular Volume 88.6 fL (83.0-100.0); Mean Platelet Volume 10.2 fL (9.4-12.4); Monocytes # 0.4 K/mcL (0.0-1.3); Monocytes % 11.6 %; Neutrophils # 2.1 K/mcL (1.6-8.9); Platelet Count 100 K/mcL (140-400); Red Blood Count 3.59 M/mcL (4.19-5.50); Red Cell Distribution Width 18.6 % (11.5-14.5); Segmented Neutrophils % 64.6 %; White Blood Count 3.2 K/mcL (4.3-11.1)
[2020-05-13 06:58] LABS: Calcium 8.3 mg/dL (8.6-10.3); Potassium 3.7 mEq/L (3.5-5.1)
[2020-05-13] MEDS: Budesonide/Formoterol 160/4.5 1 PUFF INH IH SCH ×2 (07:11→21:17)
[2020-05-13] MEDS: carvediloL 6.25 MG TABLET PO SCH ×2 (09:04→16:46)
[2020-05-13] MEDS: polyethylene glycoL 3350 17 GM POWD.PACK PO SCH ×2 (11:05→20:11)
[2020-05-13] MEDS: Furosemide 40 MG TABLET PO SCH (11:08)
[2020-05-13] MEDS: hydrALAZINE 25 MG TABLET PO SCH ×2 (16:46→20:10)
[2020-05-13] MEDS: Gabapentin 300 MG CAPSULE PO SCH (20:11)
[2020-05-14 05:11] LABS: Basophils % 0.5 %; Eosinophils # 0.3 K/mcL (0.0-0.6); Hematocrit 30.7 % (37.5-50.1); Hemoglobin 9.6 g/dL (12.9-16.9); Immature Granulocytes % 0.3 % (0-4); Lymphocytes # 0.7 K/mcL (0.6-4.6); Lymphocytes % 17.8 %; Mean Corpuscular HGB Conc 31.3 g/dL (31.6-35.5); Mean Corpuscular Hemoglobin 28.1 pg (28.0-33.3); Mean Corpuscular Volume 89.8 fL (83.0-100.0); Monocytes # 0.5 K/mcL (0.0-1.3); Monocytes % 13.5 %; Neutrophils # 2.3 K/mcL (1.6-8.9); Platelet Count 118 K/mcL (140-400); Red Blood Count 3.42 M/mcL (4.19-5.50); Red Cell Distribution Width 18.7 % (11.5-14.5); Segmented Neutrophils % 60.9 %; White Blood Count 3.7 K/mcL (4.3-11.1)
[2020-05-14 05:28] LABS: Calcium 8.6 mg/dL (8.6-10.3); Potassium 3.7 mEq/L (3.5-5.1)
[2020-05-14] MEDS ORDERED: *HR* Norepinephrine 4 MG/4 ML VIAL IVC ONE (07:33)
[2020-05-14] MEDS ORDERED: Lidocaine -MPF 2% 2 ML VIAL ONE (07:40)
[2020-05-14] MEDS ORDERED: *HR* Propofol 200 MG/20 ML VIAL IVP ONE (07:42)
[2020-05-14] MEDS ORDERED: *HR* Etomidate 40 MG/20 ML VIAL IVP ONE (08:02)
[2020-05-14] MEDS: Budesonide/Formoterol 160/4.5 1 PUFF INH IH SCH ×2 (09:26→21:48)
[2020-05-14] MEDS: carvediloL 6.25 MG TABLET PO SCH (09:44)
[2020-05-14] MEDS: Furosemide 40 MG TABLET PO SCH (09:44)
[2020-05-14] MEDS: hydrALAZINE 25 MG TABLET PO SCH ×3 (09:44→20:18)
[2020-05-14] MEDS: polyethylene glycoL 3350 17 GM POWD.PACK PO SCH ×2 (09:45→20:18)
[2020-05-14 15:29] LABS: INR 1.3; Prothrombin Time 14.3 Seconds (9.4-12.1)
[2020-05-14] MEDS ORDERED: Warfarin perPT PO PRN (18:00)
[2020-05-14] MEDS: Gabapentin 300 MG CAPSULE PO SCH (20:18)
[2020-05-15 02:54] LABS: INR 1.3; Prothrombin Time 14.5 Seconds (9.4-12.1)
[2020-05-15 03:25] LABS: Basophils % 0.3 %; Eosinophils # 0.2 K/mcL (0.0-0.6); Eosinophils % 5.9 %; Hematocrit 29.1 % (37.5-50.1); Hemoglobin 8.9 g/dL (12.9-16.9); Immature Granulocytes % 0.3 % (0-4); Lymphocytes # 0.5 K/mcL (0.6-4.6); Lymphocytes % 15.6 %; Mean Corpuscular HGB Conc 30.6 g/dL (31.6-35.5); Mean Corpuscular Hemoglobin 27.6 pg (28.0-33.3); Mean Corpuscular Volume 90.1 fL (83.0-100.0); Mean Platelet Volume 10.6 fL (9.4-12.4); Monocytes # 0.3 K/mcL (0.0-1.3); Monocytes % 10.3 %; Neutrophils # 2.2 K/mcL (1.6-8.9); Platelet Count 112 K/mcL (140-400); Red Blood Count 3.23 M/mcL (4.19-5.50); Red Cell Distribution Width 18.6 % (11.5-14.5); Segmented Neutrophils % 67.6 %; White Blood Count 3.2 K/mcL (4.3-11.1)
[2020-05-15 03:37] LABS: Calcium 8.2 mg/dL (8.6-10.3)
[2020-05-15] MEDS: Budesonide/Formoterol 160/4.5 1 PUFF INH IH SCH ×2 (07:22→20:14)
[2020-05-15] MEDS: polyethylene glycoL 3350 17 GM POWD.PACK PO SCH ×2 (08:30→20:08)
[2020-05-15] MEDS: Bumetanide 1 MG TABLET PO SCH (08:32)
[2020-05-15] MEDS: hydrALAZINE 25 MG TABLET PO SCH ×3 (08:32→20:08)
[2020-05-15] MEDS: carvediloL 6.25 MG TABLET PO SCH (16:56)
[2020-05-15] MEDS ORDERED: *HR* Warfarin 5 MG TABLET PO ONE (18:00)
[2020-05-15] MEDS: Gabapentin 300 MG CAPSULE PO SCH (20:07)
[2020-05-16 02:33] LABS: Basophils % 0.5 %; Eosinophils # 0.3 K/mcL (0.0-0.6); Eosinophils % 7.7 %; Hematocrit 30.9 % (37.5-50.1); Hemoglobin 9.5 g/dL (12.9-16.9); Immature Granulocytes % 0.3 % (0-4); Lymphocytes # 0.5 K/mcL (0.6-4.6); Lymphocytes % 14.5 %; Mean Corpuscular HGB Conc 30.7 g/dL (31.6-35.5); Mean Corpuscular Hemoglobin 27.3 pg (28.0-33.3); Mean Corpuscular Volume 88.8 fL (83.0-100.0); Mean Platelet Volume 11.2 fL (9.4-12.4); Monocytes # 0.4 K/mcL (0.0-1.3); Neutrophils # 2.4 K/mcL (1.6-8.9); Platelet Count 157 K/mcL (140-400); Red Blood Count 3.48 M/mcL (4.19-5.50); Red Cell Distribution Width 18.8 % (11.5-14.5); White Blood Count 3.7 K/mcL (4.3-11.1)
[2020-05-16 02:45] LABS: INR 1.3; Prothrombin Time 14.2 Seconds (9.4-12.1)
[2020-05-16 05:33] LABS: Calcium 8.2 mg/dL (8.6-10.3); Potassium 3.9 mEq/L (3.5-5.1)
[2020-05-16 07:13] VITALS: BP 164/83
[2020-05-16] MEDS: Budesonide/Formoterol 160/4.5 1 PUFF INH IH SCH (07:44)
[2020-05-16] MEDS: hydrALAZINE 25 MG TABLET PO SCH (08:10)
[2020-05-16] MEDS: carvediloL 6.25 MG TABLET PO SCH (08:10)
[2020-05-16] MEDS: Bumetanide 1 MG TABLET PO SCH (08:10)
[2020-05-16] MEDS: polyethylene glycoL 3350 17 GM POWD.PACK PO SCH (08:11)
[2020-05-16] MEDS ORDERED: Aspirin Enteric Coated 81 MG Tablet PO SCH (09:00)
== END 2020-05-16 12:31 | disposition home or self-care (01) | DRG 286 ==
LOC: EMEROOARM 17:44 → 2ANU 17:44 → SUATTDRO 21:57 → 2ANU 22:35 → SUATTDRO 05-10 15:18
PROVIDERS: ADMIT Student in an Organized Health Care Education/Training Program; ATTEND Internal Medicine

== ENCOUNTER 2022-04-30 16:15 | Inpatient (IN) ==
[2022-04-30 19:08] LABS: Basophils % 0.6 %; Eosinophils # 0.5 K/mcL (0.0-0.6); Eosinophils % 6.9 %; Hematocrit 37.9 % (37.5-50.1); Hemoglobin 11.7 g/dL (12.9-16.9); Immature Granulocytes % 0.3 % (0-4); Lymphocytes % 14.1 %; Mean Corpuscular HGB Conc 30.9 g/dL (31.6-35.5); Mean Corpuscular Hemoglobin 26.8 pg (28.0-33.3); Mean Corpuscular Volume 86.7 fL (83.0-100.0); Mean Platelet Volume 11.3 fL (9.4-12.4); Monocytes # 0.7 K/mcL (0.0-1.3); Platelet Count 134 K/mcL (140-400); Red Blood Count 4.37 M/mcL (4.19-5.50); Red Cell Distribution Width 15.9 % (11.5-14.5); Segmented Neutrophils % 69.1 %; White Blood Count 7.3 K/mcL (4.3-11.1)
[2022-04-30 19:20] LABS: INR 2.8; Prothrombin Time 31.3 Seconds (9.4-12.1)
[2022-04-30 19:30] LABS: BUN/Creatinine Ratio 17 (6-26); Blood Urea Nitrogen 44 mg/dL (8-23); Calcium 8.8 mg/dL (8.6-10.3); Carbon Dioxide 23 mEq/L (23-29); Chloride 108 mEq/L (98-107); Glucose 85 mg/dL (70-105); Osmolality,Calculated 298 (280-300); Potassium 4.7 mEq/L (3.5-5.1); Sodium 139 mEq/L (136-145); Troponin I < 0.03 ng/mL (< 0.04)
[2022-04-30] MEDS ORDERED: Furosemide 40 MG/4 ML VIAL IVP ONE (22:29)
[2022-04-30] MEDS ORDERED: Acetaminophen 325 MG TABLET PO PRN (23:25)
[2022-04-30] MEDS ORDERED: Ondansetron 4 MG/2 ML VIAL IVP PRN (23:25)
[2022-04-30] MEDS ORDERED: Naloxone 0.4 MG/ML INJ IVP PRN (23:25)
[2022-05-01 03:28] LABS: Basophils % 0.4 %; Eosinophils # 0.4 K/mcL (0.0-0.6); Eosinophils % 6.3 %; Hematocrit 37.3 % (37.5-50.1); Hemoglobin 11.5 g/dL (12.9-16.9); Immature Granulocytes % 0.3 % (0-4); Lymphocytes # 1.1 K/mcL (0.6-4.6); Lymphocytes % 16.3 %; Mean Corpuscular HGB Conc 30.8 g/dL (31.6-35.5); Mean Corpuscular Hemoglobin 26.6 pg (28.0-33.3); Mean Corpuscular Volume 86.1 fL (83.0-100.0); Mean Platelet Volume 11.3 fL (9.4-12.4); Monocytes # 0.7 K/mcL (0.0-1.3); Monocytes % 9.6 %; Neutrophils # 4.6 K/mcL (1.6-8.9); Platelet Count 141 K/mcL (140-400); Red Blood Count 4.33 M/mcL (4.19-5.50); Red Cell Distribution Width 15.8 % (11.5-14.5); Segmented Neutrophils % 67.1 %; White Blood Count 6.9 K/mcL (4.3-11.1)
[2022-05-01 03:38] LABS: Calcium 8.8 mg/dL (8.6-10.3); Magnesium 2.1 mg/dL (1.6-2.6); Potassium 4.7 mEq/L (3.5-5.1)
[2022-05-01 04:07] LABS: INR 2.4; Prothrombin Time 26.3 Seconds (9.4-12.1)
[2022-05-01] MEDS ORDERED: Furosemide 20 MG/2 ML VIAL IVP ONE (13:18)
[2022-05-01] MEDS: carvediloL 6.25 MG TABLET PO SCH (17:24)
[2022-05-01] MEDS: hydrALAZINE 25 MG TABLET PO SCH ×2 (17:25→20:15)
[2022-05-01] MEDS ORDERED: *HR* Warfarin 7.5 MG TABLET PO ONE (18:00)
[2022-05-01] MEDS ORDERED: Warfarin perPT PO PRN (18:00)
[2022-05-02 06:31] LABS: INR 2.3; Prothrombin Time 25.8 Seconds (9.4-12.1)
[2022-05-02 06:46] LABS: Calcium 8.8 mg/dL (8.6-10.3); Magnesium 2.1 mg/dL (1.6-2.6); Potassium 4.4 mEq/L (3.5-5.1)
[2022-05-02] MEDS: Budesonide/Formoterol 160/4.5 1 PUFF INH IH SCH ×2 (07:37→21:28)
[2022-05-02] MEDS: carvediloL 6.25 MG TABLET PO SCH ×2 (07:52→16:56)
[2022-05-02] MEDS: hydrALAZINE 25 MG TABLET PO SCH ×3 (07:52→20:01)
[2022-05-02] MEDS: calcitrioL 0.25 MCG CAPSULE PO SCH (07:52)
[2022-05-02] MEDS ORDERED: Furosemide 40 MG/4 ML VIAL IVP SCH (09:00)
[2022-05-02] MEDS ORDERED: *HR* Warfarin 7.5 MG TABLET PO ONE (18:00)
[2022-05-02] MEDS ORDERED: Primidone 50 MG TABLET PO SCH (21:00)
[2022-05-03 04:43] LABS: INR 2.1; Prothrombin Time 23.5 Seconds (9.4-12.1)
[2022-05-03 04:55] LABS: Calcium 8.6 mg/dL (8.6-10.3); Potassium 4.1 mEq/L (3.5-5.1)
[2022-05-03] MEDS: Budesonide/Formoterol 160/4.5 1 PUFF INH IH SCH (07:43)
[2022-05-03 07:48] VITALS: O2SAT 93
[2022-05-03] MEDS: carvediloL 6.25 MG TABLET PO SCH (08:54)
[2022-05-03] MEDS: hydrALAZINE 25 MG TABLET PO SCH (08:54)
[2022-05-03] MEDS: calcitrioL 0.25 MCG CAPSULE PO SCH (08:54)
[2022-05-03] MEDS ORDERED: Bumetanide 1 MG TABLET PO SCH (10:00)
[2022-05-03 10:51] VITALS: BP 123/56; PULSE 61; TEMP 97.6
[2022-05-03] MEDS ORDERED: *HR* Warfarin 7.5 MG TABLET PO ONE (18:00)
== END 2022-05-03 11:45 | disposition home or self-care (01) | DRG 556 ==
LOC: EMEROOARM 16:15 → 2ANU 16:15 → SUATTDRO 23:03 → 2ANU 05-01 00:37
PROVIDERS: ADMIT Pharmacist; ATTEND Internal Medicine